=== PATIENT | male | born 1945 | race Caucasian/White ===

== ENCOUNTER 2019-02-07 15:48 | Emergency (ER) | payer MEDICARE, SELFPAY ==
[2019-02-07 15:50] VITALS: BP 130/80; PULSE 71; RESP 15; TEMP 36.8; O2SAT 99; BMI 23.6
--- NOTE | 2019-02-07 15:56 | DI.CT.S_ITS ---
PROCEDURE: CT HEAD/BRAIN WO CON INDICATIONS: hit in head with tailgate, on coumadin TECHNIQUE: Noncontrast 4.5 mm thick angled axial sections acquired from the foramen magnum to the vertex, with coronal and sagittal reformats. For radiation dose reduction, the following was used: automated exposure control, adjustment of mA and/or kV according to patient size. COMPARISON: None. FINDINGS: Image quality: Excellent. CSF spaces: Basal cisterns are patent. No extra-axial fluid collections. The ventricles are symmetric in size and shape. Brain: No intracranial bleeds or masses. There is cerebral volume loss for age, with resultant ventricular and sulcal prominence. There are periventricular and deep white matter chronic small vessel ischemic changes. There is intracranial internal carotid artery atherosclerosis. Skull and face: Calvarium and visualized facial bones appear intact, without suspicious lesions. Sinuses: Visualized sinuses and mastoids are clear. IMPRESSION: No acute intracranial process. Dictated by: Son Dubon M.D. on 02/07/2019 at 16:40 Approved by: Son Dubon M.D. on 02/07/2019 at 16:45
[2019-02-07] MEDS: LIDOCAINE/PRILOCAINE 5 GM TOP (16:36)
--- NOTE | 2019-02-07 16:48 | ED.HEATRA ---
HPI - Head Injury <DEREJE Clark-BC - Last Filed: 02/07/19 19:18> General Chief complaint: Head Injury Stated complaint: LACERATION TOP OF HEAD Time Seen by Provider: 02/07/19 15:50 Source: patient Mode of arrival: Ambulatory Limitations: no limitations History of Present Illness HPI Narrative: The patient is a 73-year-old male current smoker with history of prediabetes who presents with a chief complaint of hitting his head on the head of the car. He states he accidentally hit his head, causing a laceration. He is concerned that he is on Coumadin. He did not lose consciousness, denies any neck or back pain. Denies any numbness of groin. He denies any incontinence of bowel or bladder, lightheadedness, dizziness, chest pain or shortness of breath. The patient ambulates into the emergency department of his own accord. Given the patient hitting his head on Coumadin, a modified trauma was activated Related Data Home Medications Medication Instructions Recorded Confirmed metformin 500 mg PO BID 02/07/19 02/07/19 metoprolol tartrate 37.5 mg PO QPM 02/07/19 02/07/19 metoprolol tartrate 50 mg PO QAM 02/07/19 02/07/19 warfarin 5 mg PO DAILY 02/07/19 02/07/19 Allergies Allergy/AdvReac Type Severity Reaction Status Date / Time No Known Drug Allergies Allergy Verified 02/07/19 15:55 Review of Systems <DEREJE Clark-BC - Last Filed: 02/07/19 19:18> Review of Systems Narrative: GENERAL: Denies chills, fatigue, malaise, fever, sweats. HEENT: Denies sinus pain, ear pain, sore throat, difficulty swallowing, dizziness. RESPIRATORY: Denies dyspnea, cough, wheezing, hemoptysis, sputum. CARDIOVASCULAR: Denies chest pain, palpitations, orthopnea, edema, GASTROINTESTINAL: Denies nausea, vomiting, abdominal pain, diarrhea, constipation, melena. : Denies dysuria, frequency, incontinence, hematuria, urinary retention. MUSCULOSKELETAL: denies weakness, joint pain, or bony pain SKIN: See HPI NEUROLOGIC: Denies weakness, headache, numbness, change in speech, confusion, seizures, incoordination. PSYCHIATRIC: No concerning psychosocial issues. 12 point review of systems is negative except for those stated above Patient History <DEREJE Clark-BC - Last Filed: 02/07/19 19:18> Social History Smoking Status: Current every day smoker alcohol intake frequency: holidays/special occasions only Substance Use Type: does not use Exam <DEREJE Clark-BC - Last Filed: 02/07/19 19:18> Narrative Exam Narrative: GENERAL: This is a well-nourished, well-developed patient, in no acute distress. HEAD: Atraumatic. Normocephalic. No temporal or scalp tenderness. EYES: Pupils equal round and reactive. Extraocular motions intact. No scleral icterus. No injection or drainage. ENT: Nose without bleeding, purulent drainage or septal hematoma. Throat without erythema, tonsillar hypertrophy or exudate. Uvula midline. Airway patent. NECK: Trachea midline. No JVD or lymphadenopathy. Supple, nontender, no meningeal signs. CARDIOVASCULAR: Regular rate and rhythm RESPIRATORY: Coarse to auscultation. Breath sounds equal bilaterally. No wheezes, rales, or rhonchi. Occasional cough noted. No increased respiratory effort or accessory muscle use. GASTROINTESTINAL: Abdomen soft, non-tender, nondistended. No hepato-splenomegaly, or palpable masses. No guarding. EXTREMITIES: No clubbing, cyanosis, or edema. No joint tenderness, effusion, or edema noted. BACK: Nontender without deformity or crepitance. No flank tenderness. No pain to C, T or L-spine palpation. NEURO: AOx3. Speech is clear. Strength is equal upper and lower extremities bilaterally. Stable gait. SKIN: 2 cm laceration noted over scalp. Well approximated. No obvious muscle or tendon involvement. Initial Vital Signs Initial Vital Signs: Vital Signs Temperature 98.3 F 02/07/19 15:50 Pulse Rate 71 02/07/19 15:50 Respiratory Rate 15 02/07/19 15:50 Blood Pressure 130/80 02/07/19 15:50 Pulse Oximetry 99 02/07/19 15:50 <Mauricio Ball DO - Last Filed: 02/08/19 07:03> Initial Vital Signs Initial Vital Signs: Vital Signs Temperature 98.3 F 02/07/19 15:50 Pulse Rate 71 02/07/19 15:50 Respiratory Rate 15 02/07/19 15:50 Blood Pressure 130/80 02/07/19 15:50 Pulse Oximetry 99 02/07/19 15:50 Procedures <PAPI Clark - Last Filed: 02/07/19 19:18> Laceration Repair Laceration 1: Site: scalp Size (cm): 2 Description: linear Depth: simple, single layer Local Anesthetic: other anesthetic (Lidocaine cream) Pre-repair: wound explored, irrigated extensively (Cleansed with Hibiclens) and deep structures intact Skin layer closed with: héctor (3) Scores <PAPI Clark - Last Filed: 02/07/19 19:18> GCS Oliver coma scale eye opening: Spontaneous Oliver coma scale verbal response: Orientated Calvert coma scale motor response: Obey commands Oliver coma scale total score: 15 Nexus Score for C-Spine Focal Neurologic deficit present: No Midline spinal tenderness present: No Altered level of conciousness present: No Intoxication present: No Distracting Injury Present: No Nexus Criteria for C-spine: 0 Course <PAPI Clark - Last Filed: 02/07/19 19:18> Orders Ordered: Discontinued Medications Bacitracin (Bacitracin) 1 applic TOP NOW ONE Stop: 02/07/19 17:26 Last Admin: 02/07/19 17:34 Dose: 1 applic Documented by: AYE Lidocaine/Prilocaine (Lidocaine-Prilocaine Cream) 5 gm TOP NOW ONE Stop: 02/07/19 15:58 Last Admin: 02/07/19 16:36 Dose: 5 gm Documented by: AYE Vital Signs Vital signs: Vital Signs - 8 hr 02/07/19 15:50 02/07/19 17:13 02/07/19 17:23 Temperature 98.3 F Pulse Rate 71 88 90 Respiratory Rate 15 18 16 Blood Pressure 130/80 Blood Pressure [Right Arm] 160/89 H 160/89 H Pulse Oximetry 99 98 98 <Mauricio Ball DO - Last Filed: 02/08/19 07:03> Orders Ordered: Discontinued Medications Bacitracin (Bacitracin) 1 applic TOP NOW ONE Stop: 02/07/19 17:26 Last Admin: 02/07/19 17:34 Dose: 1 applic Documented by: AYE Lidocaine/Prilocaine (Lidocaine-Prilocaine Cream) 5 gm TOP NOW ONE Stop: 02/07/19 15:58 Last Admin: 02/07/19 16:36 Dose: 5 gm Documented by: AYE Vital Signs Vital signs: Vital Signs - 8 hr 02/07/19 15:50 02/07/19 17:13 02/07/19 17:23 Temperature 98.3 F Pulse Rate 71 88 90 Respiratory Rate 15 18 16 Blood Pressure 130/80 Blood Pressure [Right Arm] 160/89 H 160/89 H Pulse Oximetry 99 98 98 MDM - Head Injury <TIFFANIE Clark - Last Filed: 02/07/19 19:18> Imaging Data CT scan - head: Radiologist's impression: [address] [address] [address] Scan Report Signed Patient: Prakash Martinez JMR#: [id number] : [id number]:[id number] Age/Sex: 73 / MDate of Service: 02/07/19 Loc: ED Accession Number: [id number] Procedure: CT head/brain wo con Ordering Provider: Silvia Santoyo PROCEDURE: CT HEAD/BRAIN WO CON INDICATIONS: hit in head with tailgate, on coumadin TECHNIQUE: Noncontrast 4.5 mm thick angled axial sections acquired from the foramen magnum to the vertex, with coronal and sagittal reformats. For radiation dose reduction, the following was used: automated exposure control, adjustment of mA and/or kV according to patient size. COMPARISON: None. FINDINGS: Image quality: Excellent. CSF spaces: Basal cisterns are patent. No extra-axial fluid collections. The ventricles are symmetric in size and shape. Brain: No intracranial bleeds or masses. There is cerebral volume loss for age, with resultant ventricular and sulcal prominence. There are periventricular and deep white matter chronic small vessel ischemic changes. There is intracranial internal carotid artery atherosclerosis. Skull and face: Calvarium and visualized facial bones appear intact, without suspicious lesions. Sinuses: Visualized sinuses and mastoids are clear. IMPRESSION: No acute intracranial process. Dictated by: Son Dubon M.D. on 02/07/2019 at 16:40 Approved by: Son Dubon M.D. on 02/07/2019 at 16:45 [facility] Narrative Medical decision making narrative: The patient is a 73-year-old male who presents after hitting his head on the edge of a car. He is on Coumadin it and hit his head, so modified trauma was activated. I did not check his INR as his INR was checked this morning and down found to be in range at 3.0. Additionally his head CT showed no acute findings. He is GCS was 15, his C-spine was cleared by nexus criteria. The patient's laceration was closed by héctor. I discussed at length the importance of follow-up with primary care provider for staple removal. Discussed monitoring for signs and symptoms of infection such as redness pus etc. Discussed coming back to the emergency department for any acute concerns. Patient has no questions or concerns upon discharge. Discharge Plan Departure Patient Disposition: Home Clinical Impression: Laceration Discharge Date/Time: 02/07/19 17:44 Instructions: DI for Laceration Repair -- [place] Activity Restrictions/Additional Instructions: Please follow up with primary care provider for re-evaluation in a few days. Please monitor your laceration for signs and symptoms of infection such as redness pus and fever. Please come back to the emergency department for any acute concerns such as confusion or numbness in your groin Please follow up for staple removal in about 10 days. I suggest ice, Tylenol Motrin etc for pain Prescriptions: No Action metformin 500 mg tablet 500 mg PO BID RF: 0 warfarin 5 mg tablet 5 mg PO DAILY RF: 0 metoprolol tartrate 25 mg tablet 50 mg PO QAM RF: 0 metoprolol tartrate 25 mg tablet 37.5 mg PO QPM RF: 0
[2019-02-07 17:13] VITALS: BP 160/89; PULSE 88; RESP 18; O2SAT 98
[2019-02-07 17:23] VITALS: BP 160/89; PULSE 90; RESP 16; O2SAT 98
[2019-02-07] MEDS: BACITRACIN OINT 0.9 GM PCKT 1 APPLIC TOP (17:34)
--- NOTE | 2019-02-07 17:35 | PC.NURSE ---
Bacitracin, bandage, and stockinette cap applied.
== END 2019-02-07 17:44 | disposition home or self-care (01) ==
PROVIDERS: Emergency Provider Nurse Practitioner Family
DX: S01.01XA Laceration without foreign body of scalp, initial encounter (principal); Z79.01 Long term (current) use of anticoagulants; W22.8XXA Striking against or struck by other objects, initial encounter
CPT/HCPCS: 12001; 70450; 99283; 99284

== ENCOUNTER 2019-04-22 09:54 | Emergency (ER) | payer MEDICARE, SELFPAY ==
--- NOTE | 2019-04-22 09:58 | ED_ITS ---
HPI - Weakness General Chief complaint: Weakness Stated complaint: glf Time Seen by Provider: 04/22/19 09:57 Source: patient, family and EMS Mode of arrival: EMS Limitations: no limitations History of Present Illness HPI Narrative: The patient is a 73-year-old male with history of atrial fibrillation pre diabetes who presents with generalized weakness and falls. Family states that yesterday he was not feeling well felt overall weak and fatigued he has fallen a few times since then. He has had syncopal episodes in the past and currently has a loop recorder. He denies any injury from the falls no head injury, no LOC, no hip or pelvic pain. He has no weakness numbness tingling no chest pain heart palpitation. MD Complaint: generalized weakness Duration: constant Location: generalized Related Data Home Medications Medication Instructions Recorded Confirmed metformin 500 mg PO BID 02/07/19 02/07/19 metoprolol tartrate 37.5 mg PO QPM 02/07/19 02/07/19 metoprolol tartrate 50 mg PO QAM 02/07/19 02/07/19 warfarin 5 mg PO DAILY 02/07/19 02/07/19 Allergies Allergy/AdvReac Type Severity Reaction Status Date / Time No Known Drug Allergies Allergy Verified 02/07/19 15:55 Review of Systems Review of Systems ROS Unobtainable: All systems reviewed & are unremarkable except as noted in HPI and below Constitutional Constitutional: Denies body ache(s), Reports frequent falls and Denies headache(s) ENT Ears, Nose, Mouth, and Throat: Denies headache(s) Cardiovascular Cardiovascular: Denies chest pain, Reports irregular heart rhythm, Denies lightheadedness, Denies palpitations, Denies dyspnea, Denies dyspnea on exertion and Denies orthopnea Respiratory Respiratory: Denies cough, Denies dyspnea, Denies dyspnea on exertion and Denies wheezing Gastrointestinal Gastrointestinal: Denies abdominal pain, Denies change in bowel habits, Denies diarrhea, Denies nausea and Denies vomiting Genitourinary Genitourinary: Denies hematuria, Denies flank pain, Denies urinary incontinence and Denies urinary urgency Musculoskeletal Musculoskeletal: Denies back pain, Denies muscle weakness, Denies numbness and Denies tingling Integumentary/Breasts Skin/Breast: Denies pruritus, Denies erythema, Denies rash and Denies wounds Neurologic Neurologic: Denies confusion, Reports frequent falls, Denies headache(s), Denies numbness and Denies tingling Psychiatric Psychiatric: Denies anxiety, Denies confusion, Denies depression, Denies homicidal ideation and Denies suicidal ideation Endocrine Endocrine: Denies palpitations Allergic/Immunologic Allergic/Immunologic: Denies wheezing Patient History Medical History Atrial fibrillation (Acute) Social History Smoking Status: Current every day smoker Smoking Status: Current every day smoker alcohol intake frequency: holidays/special occasions only Substance Use Type: does not use Exam Initial Vital Signs Initial Vital Signs: Vital Signs Temperature 99.1 F 04/22/19 10:00 Pulse Rate 81 04/22/19 10:00 Respiratory Rate 16 04/22/19 10:00 Blood Pressure 119/67 04/22/19 10:00 Pulse Oximetry 98 04/22/19 10:00 GENERAL: Alert well-appearing elderly male and in no acute distress. HEENT: Head atraumatic,EOMI, pupils reactive, face symmetric, moist mucous membranes CARDIOLOGY: Irregularly irregular Regular rate and rhythm without murmurs, rubs or gallops. RESPIRATORY: Breath sounds equal bilaterally, no wheezes rales or rhonchi. ABDOMEN: Soft, nontender. Normoactive bowel sounds all 4 quadrants. No guardi ng or rebound. EXTREMITIES: Normal range of motion, no clubbing or edema. Neurovascularly intact NEUROLOGICAL: Alert and oriented x4.Normal gait and speech. SKIN: Warm, dry, no laceration, no petechiae, no rashes or lesions. Scores NIH Stroke Scale Level of Conciousness: Alert, keenly responsive Ask month/age: Answers both questions correctly. Open/close eyes, close hand: Performs both tasks correctly Best gaze horizontal: Normal Visual owens: No visual loss Facial palsy: Normal symetrical movement Left arm drift: No drift for full 10 sec Right arm drift: No drift for full 10 sec Left leg drift: No drift for full 10 sec Right leg drift: No drift for full 10 sec Limb ataxia: Absent Sensory on face/arms/legs: Normal, no sensory loss Best language: No aphasia, normal Dysarthria: Normal Extinction or inattention: No abnormality Total NIH Stroke scale score: 0 Course Orders Ordered: ED Orders 04/22/19 09:57 XR chest 1V Stat 04/22/19 10:04 CT head/brain wo con Stat 04/22/19 10:10 Complete Blood Count AUTO DIFF Stat Comprehensive Metabolic Panel Stat Influenza A & B (PCR) Stat Lactate (Lactic Acid) Stat Partial Thromboplastin Time Stat Procalcitonin Stat Prothrombin Time INR Stat Troponin & CK Cardiac Panel Stat 04/22/19 11:24 Blood Culture Stat 04/22/19 12:59 Urine Microscopic Stat Consultations Consultation #1: Dr. Amador neurosurgery has reviewed CT head, at this time if no significant trauma probably from venous access recommend repeat head CT by PCP next week. Time: 12:35 Vital Signs Vital signs: Vital Signs - 8 hr 04/22/19 10:00 04/22/19 11:00 04/22/19 11:30 Temperature 99.1 F Pulse Rate 81 68 79 Respiratory Rate 16 14 16 Blood Pressure 119/67 Blood Pressure [Left Arm] 121/70 127/73 Pulse Oximetry 98 99 99 04/22/19 12:00 04/22/19 12:30 Temperature Pulse Rate 78 76 Respiratory Rate 19 16 Blood Pressure Blood Pressure [Left Arm] 125/71 118/67 Pulse Oximetry 96 97 MDM - Weakness Lab Data Attestation: I reviewed the patient's lab results. Result diagrams: 04/22/19 10:10 04/22/19 10:10 Labs: Lab Results 04/22/19 04/22/19 04/22/19 Range/Units 10:10 10:10 10:10 WBC 8.0 (4.5-11.0) X10^3/uL RBC 4.50 (4.5-5.9) X10^6/uL Hgb 13.8 (13.5-17.5) g/dL Hct 40.8 L (41-53) % MCV 90.8 (80-100) fL MCH 30.6 (26-34) PG MCHC 33.7 (30-36) % RDW 15.9 H (11.6-14.8) % Plt Count 145 L (150-400) X10^3/uL Neut % (Auto) 57.6 (50-75) % Lymph % (Auto) 26.4 (25-40) % Bowman % (Auto) 12.2 (3-14) % Eos % (Auto) 3.0 (2-4) % Baso % (Auto) 0.8 (0-2) % Neut # (Auto) 4600 (3507-7626) /uL Lymph # (Auto) 2100 (3536-2173) /uL Bowman # (Auto) 1000 H (0-900) /uL Eos # (Auto) 200 (0-450) /uL Baso # (Auto) 100 (0-100) /uL PT 22.9 H (10.1-12.7) SECONDS INR 2.0 H (0.9-1.3) APTT 33 (26.4-36.2) SECONDS Sodium 140 (137-145) mmol/L Potassium 4.0 (3.4-5.1) mmol/L Chloride 106 (98-107) mmol/L Carbon Dioxide 29 (22-32) mmol/L BUN 27 H (9-20) mg/dL Creatinine 0.90 (0.66-1.25) mg/dL Estimated GFR > 60.0 (>60) mL/min BUN/Creatinine Ratio 30.0 H (6-22) Glucose 91 (80-110) mg/dL Lactate (0.7-2.1) mmol/L Calcium 9.1 (8.4-10.2) mg/dL Total Bilirubin 0.6 (0.2-1.3) mg/dL AST 48 (17-59) IU/L ALT 21 (<50) IU/L Alkaline Phosphatase 45 (38-126) U/L Total Creatine Kinase 63 (55-170) U/L CK-MB (CK-2) TNP CK-MB (CK-2) Rel Index TNP Troponin I 0.014 (0.01-0.034) ng/mL Total Protein 7.2 (6.3-8.2) g/dL Albumin 3.8 (3.5-5.0) g/dL Globulin 3.4 (1.7-4.1) g/dL Albumin/Globulin Ratio 1.1 (1.0-2.8) Procalcitonin (<0.5) ng/mL Urine RBC (0-5/HPF) Urine WBC (0-5/HPF) Urine Bacteria (None) Ur Culture Indicated? Influenza A (RT-PCR) (NEGATIVE) Influenza B (RT-PCR) (NEGATIVE) 01/04/20 01/04/20 01/04/20 Range/Units 10:10 10:10 10:10 WBC (4.5-11.0) X10^3/uL RBC (4.5-5.9) X10^6/uL Hgb (13.5-17.5) g/dL Hct (41-53) % MCV (80-100) fL MCH (26-34) PG MCHC (30-36) % RDW (11.6-14.8) % Plt Count (150-400) X10^3/uL Neut % (Auto) (50-75) % Lymph % (Auto) (25-40) % Bowman % (Auto) (3-14) % Eos % (Auto) (2-4) % Baso % (Auto) (0-2) % Neut # (Auto) (6814-6169) /uL Lymph # (Auto) (0409-7697) /uL Bowman # (Auto) (0-900) /uL Eos # (Auto) (0-450) /uL Baso # (Auto) (0-100) /uL PT (10.1-12.7) SECONDS INR (0.9-1.3) APTT (26.4-36.2) SECONDS Sodium (137-145) mmol/L Potassium (3.4-5.1) mmol/L Chloride (98-107) mmol/L Carbon Dioxide (22-32) mmol/L BUN (9-20) mg/dL Creatinine (0.66-1.25) mg/dL Estimated GFR (>60) mL/min BUN/Creatinine Ratio (6-22) Glucose (80-110) mg/dL Lactate 1.2 (0.7-2.1) mmol/L Calcium (8.4-10.2) mg/dL Total Bilirubin (0.2-1.3) mg/dL AST (17-59) IU/L ALT (<50) IU/L Alkaline Phosphatase (38-126) U/L Total Creatine Kinase (55-170) U/L CK-MB (CK-2) CK-MB (CK-2) Rel Index Troponin I (0.01-0.034) ng/mL Total Protein (6.3-8.2) g/dL Albumin (3.5-5.0) g/dL Globulin (1.7-4.1) g/dL Albumin/Globulin Ratio (1.0-2.8) Procalcitonin < 0.05 (<0.5) ng/mL Urine RBC (0-5/HPF) Urine WBC (0-5/HPF) Urine Bacteria (None) Ur Culture Indicated? Influenza A (RT-PCR) Flu a negative (NEGATIVE) Influenza B (RT-PCR) Flu b negative (NEGATIVE) 04/22/19 Range/Units 12:59 WBC (4.5-11.0) X10^3/uL RBC (4.5-5.9) X10^6/uL Hgb (13.5-17.5) g/dL Hct (41-53) % MCV (80-100) fL MCH (26-34) PG MCHC (30-36) % RDW (11.6-14.8) % Plt Count (150-400) X10^3/uL Neut % (Auto) (50-75) % Lymph % (Auto) (25-40) % Bowman % (Auto) (3-14) % Eos % (Auto) (2-4) % Baso % (Auto) (0-2) % Neut # (Auto) (7742-2307) /uL Lymph # (Auto) (4597-6741) /uL Bowman # (Auto) (0-900) /uL Eos # (Auto) (0-450) /uL Baso # (Auto) (0-100) /uL PT (10.1-12.7) SECONDS INR (0.9-1.3) APTT (26.4-36.2) SECONDS Sodium (137-145) mmol/L Potassium (3.4-5.1) mmol/L Chloride (98-107) mmol/L Carbon Dioxide (22-32) mmol/L BUN (9-20) mg/dL Creatinine (0.66-1.25) mg/dL Estimated GFR (>60) mL/min BUN/Creatinine Ratio (6-22) Glucose (80-110) mg/dL Lactate (0.7-2.1) mmol/L Calcium (8.4-10.2) mg/dL Total Bilirubin (0.2-1.3) mg/dL AST (17-59) IU/L ALT (<50) IU/L Alkaline Phosphatase (38-126) U/L Total Creatine Kinase (55-170) U/L CK-MB (CK-2) CK-MB (CK-2) Rel Index Troponin I (0.01-0.034) ng/mL Total Protein (6.3-8.2) g/dL Albumin (3.5-5.0) g/dL Globulin (1.7-4.1) g/dL Albumin/Globulin Ratio (1.0-2.8) Procalcitonin (<0.5) ng/mL Urine RBC 5-10/hpf H (0-5/HPF) Urine WBC None seen (0-5/HPF) Urine Bacteria None seen (None) Ur Culture Indicated? Cult not indicated Influenza A (RT-PCR) (NEGATIVE) Influenza B (RT-PCR) (NEGATIVE) Urine Dip Bedside Urine Glucose Negative Bedside Urine Bilirubin - Negative Bedside Urine Ketone +/- 5 Urine Specific [place] 1.015 Bedside Urine Occult Blood +/- Bedside Urine pH 6.5 Bedside Urine Protein +/- 15 Bedside Urine Urobilinogen - Negative Bedside Urine Nitrite - Negative Bedside Urine Leukocytes - Negative Esterase Imaging Data CT scan - head: Radiologist Impression: PROCEDURE: CT HEAD/BRAIN WO CON INDICATIONS: frequent falls on coumadin TECHNIQUE: Noncontrast 4.5 mm thick angled axial sections acquired from the foramen magnum to the vertex, with coronal and sagittal reformats. For radiation dose reduction, the following was used: automated exposure control, adjustment of mA and/or kV according to patient size. COMPARISON: [facility], CR, XR CHEST 1V, 04/22/2019, 10:12. [facility], CT, CT HEAD/BRAIN WO CON, 02/07/2019, 16:04. FINDINGS: Image quality: Excellent. CSF spaces: Basal cisterns are patent. No extra-axial fluid collections. The ventricles are symmetric in size and shape. Brain: No intracranial bleeds or masses. There is cerebral volume loss for age, with resultant ventricular and sulcal prominence. There are periventricular and deep white matter chronic small vessel ischemic changes. There is intracranial internal carotid artery atherosclerosis. Skull and face: Multiple foci of gas can be seen within the deep soft tissues of the face. There are a few soft tissue foci also seen within the region of the cavernous sinus as well as the margins of the orbits. Calvarium and visualized facial bones appear intact, without suspicious lesions. Sinuses: Visualized sinuses and mastoids are clear. IMPRESSION: No acute intracranial hemorrhage is seen. Multiple foci of abnormal soft tissue gas can be seen. Please correlate with facial injury. Additional foci of gas can be seen within the region of the cavernous sinus as well as the margins of the orbits, which may be related to venous gas. Please correlate with venous injury, including difficult IV start. If clinically appropriate, please consider a short term followup noncontrast CT in 1-3 days to assure resolution. Note: Findings and recommendations discussed by telephone with Dr. Cantrell at 10:33 AM [place] time on April 22, 2019. Dictated by: Julien Blank M.D. on 04/22/2019 at 9:30 Approved by: Julien Blank M.D. on 04/22/2019 at 9:38 Chest x-ray: Radiologist Impression: PROCEDURE: XR CHEST 1V INDICATIONS: fall weakness TECHNIQUE: One view of the chest was acquired. COMPARISON: [facility], CT, CT HEAD/BRAIN WO CON, 04/22/2019, 10:06. FINDINGS: Surgical changes and devices: A left-sided event monitor is seen. Lungs and pleura: No focal infiltrates are seen. Mild interstitial prominence is seen. No pleural effusions or pneumothorax. Mediastinum: Mediastinal contours appear normal. Heart size is at the upper li mits of normal. Bones and chest wall: No suspicious bony lesions. Overlying soft tissues appear unremarkable. IMPRESSION: Interstitial prominence is seen throughout. The interstitial promine nce is nonspecific, yet may be related to pulmonary edema. Dictated by: Julien Blank M.D. on 04/22/2019 at 9:38 Approved by: Julien Blank M.D. on 04/22/2019 at 9:3 ECG Data Attestation: I personally reviewed and interpreted this ECG as follows: Prior ECG tracings: not available for review Interpretation: Atrial fibrillation rate [address] changes MDM Narrative Medical decision making narrative: Patient is neurovascularly in a taxi has no sign of facial trauma. Head CT does review some air possibly in the vein versus the tissue. Spoken with [facility] neuro surgery who recommends repeat head CT as an outpatient. If he is completely asymptomatic which is he is at this time. It is unlikely that this caused him to pass out. It is more likely that the air is from venous puncture. He has a loop recorder implanted is from previous syncopal episodes. At this time I recommend they follow up with Cardiology he has remained in atrial fibrillation with PVCs in the emergency department he is ambulatory in the ED without any symptoms. I discussed all findings with the patient, daughter and , Education has been performed regarding treatment plan, diagnosis, warning signs and symptoms and all concerns have been addressed. Verbally agree with and understood all of the above. Discharge Plan Departure Patient Disposition: Home Clinical Impression: Fall Qualifiers: Encounter type: initial encounter Qualified Code(s): W19.XXXA - Unspecified fall, initial encounter Discharge Date/Time: 04/22/19 13:27 Instructions: Fainting Activity Restrictions/Additional Instructions: *You have been diagnosed with weakness, air bubbles seen and brain scan *What to do: At this time it is highly unlikely that the air bubbles are causing him to fall. This is likely from the IV start. It is highly recommended that repeat noncontrast head CT be done Wednesday or Wednesday with primary care physician. Recommend that you follow-up with Dr. Mendez in regards to heart monitor *Continue to take medications as directed *Follow up with your primary care provider in 2-3 days *Return to ER if you should have recurrent falls weakness confusion numbness tingling difficulty speaking or any new, worsening or concerning symptoms Prescriptions: No Action metformin 500 mg tablet 500 mg PO BID RF: 0 warfarin 5 mg tablet 5 mg PO DAILY RF: 0 metoprolol tartrate 25 mg tablet 50 mg PO QAM RF: 0 metoprolol tartrate 25 mg tablet 37.5 mg PO QPM RF: 0 Referrals: Grabiel Thompson MD [Non-Staff] -
[2019-04-22 10:00] VITALS: BP 119/67; PULSE 81; RESP 16; TEMP 37.3; O2SAT 98; BMI 24.6
--- NOTE | 2019-04-22 10:04 | DI.CT.S_ITS ---
PROCEDURE: CT HEAD/BRAIN WO CON INDICATIONS: frequent falls on coumadin TECHNIQUE: Noncontrast 4.5 mm thick angled axial sections acquired from the foramen magnum to the vertex, with coronal and sagittal reformats. For radiation dose reduction, the following was used: automated exposure control, adjustment of mA and/or kV according to patient size. COMPARISON: [facility], CR, XR CHEST 1V, 04/22/2019, 10:12. [facility], CT, CT HEAD/BRAIN WO CON, 02/07/2019, 16:04. FINDINGS: Image quality: Excellent. CSF spaces: Basal cisterns are patent. No extra-axial fluid collections. The ventricles are symmetric in size and shape. Brain: No intracranial bleeds or masses. There is cerebral volume loss for age, with resultant ventricular and sulcal prominence. There are periventricular and deep white matter chronic small vessel ischemic changes. There is intracranial internal carotid artery atherosclerosis. Skull and face: Multiple foci of gas can be seen within the deep soft tissues of the face. There are a few soft tissue foci also seen within the region of the cavernous sinus as well as the margins of the orbits. Calvarium and visualized facial bones appear intact, without suspicious lesions. Sinuses: Visualized sinuses and mastoids are clear. IMPRESSION: No acute intracranial hemorrhage is seen. Multiple foci of abnormal soft tissue gas can be seen. Please correlate with facial injury. Additional foci of gas can be seen within the region of the cavernous sinus as well as the margins of the orbits, which may be related to venous gas. Please correlate with venous injury, including difficult IV start. If clinically appropriate, please consider a short term followup noncontrast CT in 1-3 days to assure resolution. Note: Findings and recommendations discussed by telephone with Dr. Cantrell at 10:33 AM [place] time on April 22, 2019. Dictated by: Julien Blank M.D. on 04/22/2019 at 9:30 Approved by: Julien Blank M.D. on 04/22/2019 at 9:38
[2019-04-22 10:27] LABS: Add Manual Diff / Slide Review NO; Basophils Absolute Auto 100 /uL (0-100); Basophils Percent Auto 0.8 % (0-2); Eosinophils Absolute Auto 200 /uL (0-450); Hematocrit 40.8 % (41-53); Hemoglobin 13.8 g/dL (13.5-17.5); Lymphocytes Absolute Auto 2100 /uL (1100-4500); Lymphocytes Percent Auto 26.4 % (25-40); Mean Corpuscular HGB Conc 33.7 % (30-36); Mean Corpuscular Hemoglobin 30.6 PG (26-34); Mean Corpuscular Volume 90.8 fL (80-100); Monocytes Absolute Auto 1000 /uL (0-900); Monocytes Percent Auto 12.2 % (3-14); Neutrophils Absolute Auto 4600 /uL (1500-7000); Neutrophils Percent Auto 57.6 % (50-75); Platelet Count 145 X10^3/uL (150-400); Red Cell Distribution Width 15.9 % (11.6-14.8)
[2019-04-22 10:38] LABS: Prothrombin Time 22.9 SECONDS (10.1-12.7)
[2019-04-22 10:40] LABS: HEMOLYSIS 24 (0-50)
[2019-04-22 10:41] LABS: PTT Partial Thromboplastin Tim 33 SECONDS (26.4-36.2)
[2019-04-22 10:45] LABS: Lactate (Lactic Acid) 1.2 mmol/L (0.7-2.1)
[2019-04-22 10:46] LABS: Alanine Aminotransferase 21 IU/L (<50); Albumin 3.8 g/dL (3.5-5.0); Albumin Globulin Ratio 1.1 (1.0-2.8); Alkaline Phosphatase 45 U/L (38-126); Aspartate Aminotransferase 48 IU/L (17-59); Bilirubin Total 0.6 mg/dL (0.2-1.3); Blood Urea Nitrogen 27 mg/dL (9-20); Calcium 9.1 mg/dL (8.4-10.2); Carbon Dioxide 29 mmol/L (22-32); Chloride 106 mmol/L (98-107); Creatine Kinase 63 U/L (55-170); Estimated Glomerular Filt Rate > 60.0 mL/min (>60); Globulin 3.4 g/dL (1.7-4.1); Glucose 91 mg/dL (80-110); Sodium 140 mmol/L (137-145); Total Protein 7.2 g/dL (6.3-8.2)
[2019-04-22 10:59] LABS: Troponin I 0.014 ng/mL (0.01-0.034)
[2019-04-22 11:00] VITALS: BP 121/70; PULSE 68; RESP 14; O2SAT 99
[2019-04-22 11:03] LABS: Influenza A - CEPHEID Flu A NEGATIVE (NEGATIVE); Influenza B - CEPHEID Flu B NEGATIVE (NEGATIVE)
[2019-04-22 11:30] VITALS: BP 127/73; PULSE 79; RESP 16; O2SAT 99
[2019-04-22 12:00] VITALS: BP 125/71; PULSE 78; RESP 19; O2SAT 96
[2019-04-22 12:30] VITALS: BP 118/67; PULSE 76; RESP 16; O2SAT 97
--- NOTE | 2019-04-22 13:04 | PC.NURSE ---
standby to restroom, tolerated well.
[2019-04-22 13:07] LABS: Bacteria Urine None Seen; WBC Urine None Seen (0-5/HPF)
[2019-04-22 13:13] LABS: Procalcitonin < 0.05 ng/mL (<0.5)
[2019-04-22 13:15] LABS: Culture Indicated Urine Cult Not Indicated; RBC Urine 5-10/HPF (0-5/HPF)
== END 2019-04-22 13:27 | disposition home or self-care (01) ==
PROVIDERS: Emergency Provider Emergency Medicine
DX: R53.1 Weakness (principal); I48.91 Unspecified atrial fibrillation; Z91.81 History of falling; Z79.01 Long term (current) use of anticoagulants
CPT/HCPCS: 36415; 70450; 71045; 80053; 81003; 81015; 82550; 83605; 84145; 84484; 85025; 85610; 85730; 87040; 87502; 93005; 99284; 99285

== ENCOUNTER 2019-09-16 14:42 | Emergency (ER) | payer MEDICARE, SELFPAY ==
[2019-09-16 14:51] VITALS: BP 114/77; PULSE 106; RESP 13; TEMP 37.3; O2SAT 98
--- NOTE | 2019-09-16 14:59 | ED.SKABFB ---
HPI - Skin/Abscess/Foreign Bdy <TIFFANIE Clark - Last Filed: 09/16/19 19:27> General Chief complaint: Fever Stated complaint: swollen nodules in throat Time Seen by Provider: 09/16/19 14:51 Source: patient and family Mode of arrival: Ambulatory Limitations: no limitations History of Present Illness HPI narrative: The patient is a 73-year-old male current smoker with history of atrial fibrillation on Coumadin who presents for chief complaint of swollen lymph nodes in his neck. He states there on the front and the back, have been getting worse for the past several weeks to months. He comes to the emergency department today because one of his lymph nodes is becoming very painful and another one very large so he thought he would get it looked at. He complains of some postnasal drip, but denies any sore throat. He denies any fevers but complains of generalized fatigue over the past few weeks. He has tried to get his primary care provider but states he has been unable to do so. He states he is eating and drinking and swallowing food and drink well, no shortness of breath. Related Data Home Medications Medication Instructions Recorded Confirmed metformin 500 mg PO BID 02/07/19 02/07/19 metoprolol tartrate 37.5 mg PO QPM 02/07/19 02/07/19 metoprolol tartrate 50 mg PO QAM 02/07/19 02/07/19 warfarin 5 mg PO DAILY 02/07/19 02/07/19 Allergies Allergy/AdvReac Type Severity Reaction Status Date / Time No Known Drug Allergies Allergy Verified 02/07/19 15:55 Review of Systems <TIFFANIE Clark - Last Filed: 09/16/19 19:27> Review of Systems Narrative: GENERAL: Denies chills, fatigue, malaise, fever, sweats. HEENT: See HPI RESPIRATORY: Denies dyspnea, cough, wheezing, hemoptysis, sputum. CARDIOVASCULAR: Denies chest pain, palpitations, orthopnea, edema, GASTROINTESTINAL: Denies nausea, vomiting, abdominal pain, diarrhea, constipation, melena. : Denies dysuria, frequency, incontinence, hematuria, urinary retention. MUSCULOSKELETAL: denies weakness, joint pain, or bony pain SKIN: Denies rash, skin lesions, or other NEUROLOGIC: Denies weakness, headache, numbness, change in speech, confusion, seizures, incoordination. PSYCHIATRIC: No concerning psychosocial issues. 12 point review of systems is negative except for those stated above Patient History <TIFFANIE Clark - Last Filed: 09/16/19 19:27> Medical History Atrial fibrillation (Acute) Social History Smoking Status: Current every day smoker Smoking Status: Current every day smoker alcohol intake frequency: holidays/special occasions only Substance Use Type: does not use Exam <TIFFANIE Clark - Last Filed: 09/16/19 19:27> Narrative Exam Narrative: GENERAL: This is a well-nourished, well-developed patient, in no acute distress HEAD: Atraumatic. Normocephalic. No temporal or scalp tenderness. EYES: Pupils equal round and reactive. Extraocular motions intact. No scleral icterus. No injection or drainage. ENT: Nose without bleeding, purulent drainage or septal hematoma. Throat without erythema, tonsillar hypertrophy or exudate. Uvula midline. Airway patent. NECK: Bilateral anterior posterior lymphadenopathy noted including bilateral posterior auricular, cervical anterior and posterior, supraclavicular. CARDIOVASCULAR: Regular rate and irregular rhythm RESPIRATORY: Coarse bilaterally to auscultation. Breath sounds equal bilaterally. No wheezes, rales, or rhonchi. GASTROINTESTINAL: Abdomen soft, non-tender, nondistended. No hepato-splenomegaly, or palpable masses. No guarding. EXTREMITIES: No clubbing, cyanosis, or edema. No joint tenderness, effusion, or edema noted. Lymphadenopathy noted bilateral axilla and inguinal BACK: Nontender without deformity or crepitance. No flank tenderness. NEURO: AOx3. SKIN: No rash or erythema on visible skin Initial Vital Signs Initial Vital Signs: Vital Signs Temperature 99.2 F 09/16/19 14:51 Pulse Rate 106 H 09/16/19 14:51 Respiratory Rate 13 09/16/19 14:51 Blood Pressure 114/77 09/16/19 14:51 Pulse Oximetry 98 09/16/19 14:51 <Mauricio Ball DO - Last Filed: 09/17/19 07:12> Initial Vital Signs Initial Vital Signs: Vital Signs Temperature 99.2 F 09/16/19 14:51 Pulse Rate 106 H 09/16/19 14:51 Respiratory Rate 13 09/16/19 14:51 Blood Pressure 114/77 09/16/19 14:51 Pulse Oximetry 98 09/16/19 14:51 Scores <Silvia GonzalesPAPI sharifJUS - Last Filed: 09/16/19 19:27> GCS Dobbins coma scale eye opening: Spontaneous Dobbins coma scale verbal response: Orientated Oliver coma scale motor response: Obey commands Oliver coma scale total score: 15 Course <Silvia PAPI SantoyoJUS - Last Filed: 09/16/19 19:27> Orders Ordered: ED Orders 09/16/19 15:07 CT soft tissue neck w con Stat 09/16/19 15:40 Complete Blood Count AUTO DIFF Stat Comprehensive Metabolic Panel Stat Prothrombin Time INR Stat Vital Signs Vital signs: Vital Signs - 8 hr 09/16/19 14:51 09/16/19 18:38 Temperature 99.2 F Pulse Rate 106 H 87 Respiratory Rate 13 18 Blood Pressure 114/77 Blood Pressure [Left Arm] 107/66 Pulse Oximetry 98 97 <Mauricio Ball DO - Last Filed: 09/17/19 07:12> Orders Ordered: ED Orders 09/16/19 15:07 CT soft tissue neck w con Stat 09/16/19 15:40 Complete Blood Count AUTO DIFF Stat Comprehensive Metabolic Panel Stat Prothrombin Time INR Stat Vital Signs Vital signs: Vital Signs - 8 hr 09/16/19 14:51 09/16/19 18:38 Temperature 99.2 F Pulse Rate 106 H 87 Respiratory Rate 13 18 Blood Pressure 114/77 Blood Pressure [Left Arm] 107/66 Pulse Oximetry 98 97 MDM - Skin/Abscess/Foreign Bdy <Silvia GonzalesLONNIE sharifSURJIT - Last Filed: 09/16/19 19:27> Lab Data Result diagrams: 09/16/19 15:40 09/16/19 15:40 Labs: Lab Results 09/16/19 09/16/19 09/16/19 Range/Units 15:40 15:40 15:40 WBC 11.3 H (4.5-11.0) X10^3/uL RBC 4.47 L (4.5-5.9) X10^6/uL Hgb 13.6 (13.5-17.5) g/dL Hct 40.5 L (41-53) % MCV 90.7 (80-100) fL MCH 30.4 (26-34) PG MCHC 33.5 (30-36) % RDW 15.1 H (11.6-14.8) % Plt Count 190 (150-400) X10^3/uL Neut % (Auto) Not Reportable Lymph % (Auto) Not Reportable Bleckley % (Auto) Not Reportable Eos % (Auto) Not Reportable Baso % (Auto) Not Reportable Lymph # (Auto) Not Reportable [place]ck[place] # (Auto) Not Reportable Baso # (Auto) Not Reportable Total Counted 100 Seg Neutrophils % 62.0 (38-70) % Lymphocytes % (Manual) 22.0 L (25-45) % Atypical Lymphs % 2.0 H ( - 0) % Monocytes % (Manual) 12.0 H (2-11) % Eosinophils % (Manual) 2.0 (2-4) % Neutrophils # (Manual) 7006 H (8781-3546) /uL RBC Morphology See below Anisocytosis 1+ H PT 49.1 H (10.1-12.7) SECONDS INR 4.3 H (0.9-1.3) Sodium 138 (137-145) mmol/L Potassium 4.5 (3.4-5.1) mmol/L Chloride 101 (98-107) mmol/L Carbon Dioxide 27 (22-32) mmol/L BUN 24 H (9-20) mg/dL Creatinine 0.90 (0.66-1.25) mg/dL Estimated GFR > 60.0 (>60) mL/min BUN/Creatinine Ratio 26.7 H (6-22) Glucose 183 H (80-110) mg/dL Calcium 9.6 (8.4-10.2) mg/dL Total Bilirubin 0.7 (0.2-1.3) mg/dL AST 52 (17-59) IU/L ALT 47 (<50) IU/L Alkaline Phosphatase 57 (38-126) U/L Total Protein 7.9 (6.3-8.2) g/dL Albumin 3.7 (3.5-5.0) g/dL Globulin 4.2 H (1.7-4.1) g/dL Albumin/Globulin Ratio 0.9 L (1.0-2.8) Imaging Data soft tissue neck ct: Radiologist's Impression: [facility] [address] [place] [id number] Scan Report Signed Patient: Prakash Martinez JMR#: [id number] : 7Acct:[id number] Age/Sex: 73 / MDate of Service: 09/16/19 Loc: ED Accession Number: [id number] Procedure: CT soft tissue neck w con Ordering Provider: Silvia Santoyo [facility]- PROCEDURE: CT SOFT TISSUE NECK W CON INDICATIONS: fatigue, lymphadenopathy TECHNIQUE: After the administration of intravenous contrast, 3.0 mm axial sections acquired from the sella to the aortic arch. Additional oblique axial 3.0 mm sections acquired through the pharynx. 3 mm thick coronal and sagittal reformats were generated. For radiation dose reduction, the following was used: automated exposure control. COMPARISON: None. FINDINGS: Image quality: Excellent. Lymph nodes: Massively enlarged right anterior cervical adenopathy up and down the length of the neck. On image 67/2, a lymph node mass measures 6.3 x 5.0 cm. On image 52/2 there is a confluent lymph node mass in the right neck measuring 4.9 x 5.3 cm. There is significant extrinsic compression on the right internal left anterior chest there are innumerable enlarged left cervical lymph nodes as well. There is bilateral supraclavicular adenopathy. Both tonsillar pillars are quite enlarged. The oral airway is somewhat narrowed. The tracheal air column is deviated to the left. The tracheal air column is not compressed. Vessels: Visualized arterial vasculature appears patent. There is marked extrinsic compression on the right internal jugular vein. Neck spaces: Tonsillar pillars are quite enlarged. There is a polypoid mass extending to fill the right piriform sinus measuring approximately 1.8 x 1.4 cm. The left tonsillar pillar measures approximately 2.9 x 2.6 cm. The air column is narrowed at the oropharynx. The vocal cords, false vocal cords, py or, vallecula, and tongue base all appear normal. Extramucosal spaces appear unremarkable. Glands: The parotid and submandibular glands appear normal. Thyroid gland is unremarkable. The right lobe is compressed by a very large lymph node mass.. Miscellaneous: Visualized brain and orbits appear normal. Lung apices appear clear. Superficial soft tissues appear normal. Bones: No suspicious bony lesions. Visualized sinuses and mastoids appear unremarkable. IMPRESSION: 1. Massive right neck and extensive left neck adenopathy. Findings are highly suspicious for lymphoma. 2. Marked enlargement of the tonsillar pillars, polypoid mass, possibly submucosal in origin, possibly representing lymphoid tissue, filling the right pyriform sinus. 3. The oral airway is somewhat narrowed. The trachea is deviated to the left. The tracheal air column is not narrowed. Comment: Findings were discussed with Dr. Ball at the time of study dictation on 09/16/19 at 1530 hrs. PDT. Dictated by: Arvin Dozier M.D. on 09/16/2019 at 16:21 Approved by: Arvin Dozier M.D. on 09/16/2019 at 16:34 MDM Narrative Medical decision making narrative: The patient is a 73-year-old male who presents with his for chief complaint of worsening lymphadenopathy for the past 6 weeks or so. He does have gross lymphadenopathy on exam, so basic lab work and CT of his neck were completed. Imaging shows massive right neck and extensive left neck adenopathy, which is highly suspicious for lymphoma. He is also noted to have tracheal deviation to the left with no narrowing of the tracheal air column. I spoke with Dr. Becmkan from [facility], is happy to follow-up with the patient. Request that I help set up a lymph node biopsy. I spoke with Dr. Cano from [facility] who would like the patient to go to his office at 2:00 p.m. on Wednesday. Request that the patient hold Coumadin from this point now as he is supra therapeutic at 4.3 today. I discussed this at length with the patient and he and his state understanding. They state that the benefits of lymph node biopsy outweigh the risk of blood clot, stroke etcetera. The patient is oxygenating well, eating and drinking well at this point in time. They state understanding of coming back to the emergency department for any acute concerns. This includes inability to swallow food, difficulty breathing etcetera. Patient have no questions or concerns upon discharge and state understanding of return precautions as well as follow-up care for biopsy and hemeonc. <Mauricio Ball, DO - Last Filed: 09/17/19 07:12> Lab Data Labs: Lab Results 09/16/19 09/16/19 09/16/19 Range/Units 15:40 15:40 15:40 WBC 11.3 H (4.5-11.0) X10^3/uL RBC 4.47 L (4.5-5.9) X10^6/uL Hgb 13.6 (13.5-17.5) g/dL Hct 40.5 L (41-53) % MCV 90.7 (80-100) fL MCH 30.4 (26-34) PG MCHC 33.5 (30-36) % RDW 15.1 H (11.6-14.8) % Plt Count 190 (150-400) X10^3/uL Neut % (Auto) Not Reportable Lymph % (Auto) Not Reportable [place]ck[place] % (Auto) Not Reportable Eos % (Auto) Not Reportable Baso % (Auto) Not Reportable Lymph # (Auto) Not Reportable [place] # (Auto) Not Reportable Baso # (Auto) Not Reportable Total Counted 100 Seg Neutrophils % 62.0 (38-70) % Lymphocytes % (Manual) 22.0 L (25-45) % Atypical Lymphs % 2.0 H ( - 0) % Monocytes % (Manual) 12.0 H (2-11) % Eosinophils % (Manual) 2.0 (2-4) % Neutrophils # (Manual) 7006 H (1280-9308) /uL RBC Morphology See below Anisocytosis 1+ H PT 49.1 H (10.1-12.7) SECONDS INR 4.3 H (0.9-1.3) Sodium 138 (137-145) mmol/L Potassium 4.5 (3.4-5.1) mmol/L Chloride 101 (98-107) mmol/L Carbon Dioxide 27 (22-32) mmol/L BUN 24 H (9-20) mg/dL Creatinine 0.90 (0.66-1.25) mg/dL Estimated GFR > 60.0 (>60) mL/min BUN/Creatinine Ratio 26.7 H (6-22) Glucose 183 H (80-110) mg/dL Calcium 9.6 (8.4-10.2) mg/dL Total Bilirubin 0.7 (0.2-1.3) mg/dL AST 52 (17-59) IU/L ALT 47 (<50) IU/L Alkaline Phosphatase 57 (38-126) U/L Total Protein 7.9 (6.3-8.2) g/dL Albumin 3.7 (3.5-5.0) g/dL Globulin 4.2 H (1.7-4.1) g/dL Albumin/Globulin Ratio 0.9 L (1.0-2.8) Discharge Plan Departure Patient Disposition: Home Clinical Impression: Lymphadenopathy Discharge Date/Time: 09/16/19 19:34 Instructions: DI for Lymphadenopathy Activity Restrictions/Additional Instructions: Thank you for trusting us with your care today. I am glad you came in today so we can address your concerns. As I discussed, your CT findings are concerning for possible lymphoma I spoke with Dr. Cano from [facility]. He would like you to go to his office at 2:00 p.m. on Wednesday. You will likely be scheduled for a biopsy shortly thereafter. He would like you to hold your Coumadin from now on pending the biopsy I spoke with Dr. Beckman from [facility]. Their office will be contacting you for follow-up within the week. As discussed, please come back to emergency department for any acute concerns such as difficulty breathing or inability to swallow Please follow-up with primary care provider as well. Please follow-up with Dr. Cano at 2:00 p.m. on Wednesday. Please also follow-up with Oncology. Please hold your Coumadin for now pending the biopsy Prescriptions: No Action metformin 500 mg tablet 500 mg PO BID RF: 0 warfarin 5 mg tablet 5 mg PO DAILY RF: 0 metoprolol tartrate 25 mg tablet 50 mg PO QAM RF: 0 metoprolol tartrate 25 mg tablet 37.5 mg PO QPM RF: 0 Referrals: [facility] [Provider Group] Grabiel Thompson MD [Primary Care Provider] - Jacinto Beckman MD [Physician] - Jacoby Cano MD [Physician] - <Mauricio Ball DO - Last Filed: 09/17/19 07:12> Cosign ED Attending Cosignature Attestation: I was immediately available in the department for consultation. This documentation has been reviewed and I agree with assessment and plan. Supervised by Mauricio Ball, DO
--- NOTE | 2019-09-16 15:07 | DI.CT.S_ITS ---
PROCEDURE: CT SOFT TISSUE NECK W CON INDICATIONS: fatigue, lymphadenopathy TECHNIQUE: After the administration of intravenous contrast, 3.0 mm axial sections acquired from the sella to the aortic arch. Additional oblique axial 3.0 mm sections acquired through the pharynx. 3 mm thick coronal and sagittal reformats were generated. For radiation dose reduction, the following was used: automated exposure control. COMPARISON: None. FINDINGS: Image quality: Excellent. Lymph nodes: Massively enlarged right anterior cervical adenopathy up and down the length of the neck. On image 67/2, a lymph node mass measures 6.3 x 5.0 cm. On image 52/2 there is a confluent lymph node mass in the right neck measuring 4.9 x 5.3 cm. There is significant extrinsic compression on the right internal left anterior chest there are innumerable enlarged left cervical lymph nodes as well. There is bilateral supraclavicular adenopathy. Both tonsillar pillars are quite enlarged. The oral airway is somewhat narrowed. The tracheal air column is deviated to the left. The tracheal air column is not compressed. Vessels: Visualized arterial vasculature appears patent. There is marked extrinsic compression on the right internal jugular vein. Neck spaces: Tonsillar pillars are quite enlarged. There is a polypoid mass extending to fill the right piriform sinus measuring approximately 1.8 x 1.4 cm. The left tonsillar pillar measures approximately 2.9 x 2.6 cm. The air column is narrowed at the oropharynx. The vocal cords, false vocal cords, py or, vallecula, and tongue base all appear normal. Extramucosal spaces appear unremarkable. Glands: The parotid and submandibular glands appear normal. Thyroid gland is unremarkable. The right lobe is compressed by a very large lymph node mass.. Miscellaneous: Visualized brain and orbits appear normal. Lung apices appear clear. Superficial soft tissues appear normal. Bones: No suspicious bony lesions. Visualized sinuses and mastoids appear unremarkable. IMPRESSION: 1. Massive right neck and extensive left neck adenopathy. Findings are highly suspicious for lymphoma. 2. Marked enlargement of the tonsillar pillars, polypoid mass, possibly submucosal in origin, possibly representing lymphoid tissue, filling the right pyriform sinus. 3. The oral airway is somewhat narrowed. The trachea is deviated to the left. The tracheal air column is not narrowed. Comment: Findings were discussed with Dr. Ball at the time of study dictation on 09/16/19 at 1530 hrs. PDT. Dictated by: Arvin Dozier M.D. on 09/16/2019 at 16:21 Approved by: Arvin Dozier M.D. on 09/16/2019 at 16:34
[2019-09-16 15:59] LABS: INR 4.3 (0.9-1.3); Prothrombin Time 49.1 SECONDS (10.1-12.7)
[2019-09-16 16:02] LABS: Hematocrit 40.5 % (41-53); Hemoglobin 13.6 g/dL (13.5-17.5); Mean Corpuscular HGB Conc 33.5 % (30-36); Mean Corpuscular Hemoglobin 30.4 PG (26-34); Mean Corpuscular Volume 90.7 fL (80-100); Platelet Count 190 X10^3/uL (150-400); Red Blood Cell Count 4.47 X10^6/uL (4.5-5.9); Red Cell Distribution Width 15.1 % (11.6-14.8); White Blood Cell Count 11.3 X10^3/uL (4.5-11.0)
[2019-09-16 16:03] LABS: Add Manual Diff / Slide Review YES; Alanine Aminotransferase 47 IU/L (<50); Albumin 3.7 g/dL (3.5-5.0); Albumin Globulin Ratio 0.9 (1.0-2.8); Alkaline Phosphatase 57 U/L (38-126); Aspartate Aminotransferase 52 IU/L (17-59); BUN Creatinine Ratio 26.7 (6-22); Bilirubin Total 0.7 mg/dL (0.2-1.3); Blood Urea Nitrogen 24 mg/dL (9-20); Calcium 9.6 mg/dL (8.4-10.2); Carbon Dioxide 27 mmol/L (22-32); Chloride 101 mmol/L (98-107); Estimated Glomerular Filt Rate > 60.0 mL/min (>60); Globulin 4.2 g/dL (1.7-4.1); Glucose 183 mg/dL (80-110); HEMOLYSIS 17 (0-50); Potassium 4.5 mmol/L (3.4-5.1); Sodium 138 mmol/L (137-145); Total Protein 7.9 g/dL (6.3-8.2)
[2019-09-16 16:49] LABS: Anisocytosis 1+; Neutrophils Absolute Manual 7006 /uL (3000-5900); Total Cells Counted 100
[2019-09-16 18:38] VITALS: BP 107/66; PULSE 87; RESP 18; O2SAT 97
--- NOTE | 2019-09-18 10:14 | ONC.MSW ---
Description: Initial Referral Navigation T/C Reason for Referral: Probable Lymphoma Activity: Received notification from Dr. Beckman that he had consulted with the ED over the weekend, and is requesting an urgent initial consult with [facility]. ER findings indicate probable lymphoma. [employer] called pt's PCP, Dr. Thompson, and requested a referral and recent medical records. ER reports are in the EMR. Will f/u with pt once this referral comes through.
== END 2019-09-16 19:34 | disposition home or self-care (01) ==
PROVIDERS: Emergency Provider Nurse Practitioner Family; PCP Internal Medicine
DX: R59.1 Generalized enlarged lymph nodes (principal); I48.91 Unspecified atrial fibrillation; Z79.01 Long term (current) use of anticoagulants
CPT/HCPCS: 36415; 70491; 80053; 85025; 85610; 99284; Q9967

== ENCOUNTER → 2019-09-18 16:47 | Outpatient (CLI) | payer MEDICARE, SELFPAY ==
[2019-09-19 11:03] LABS: COVID19 Sendout Not Detected (Not Detect)
== END ==
PROVIDERS: PCP Internal Medicine; Visit Provider Specialist
DX: Z01.818 Encounter for other preprocedural examination (principal); R59.1 Generalized enlarged lymph nodes; I48.91 Unspecified atrial fibrillation; E11.9 Type 2 diabetes mellitus without complications; Z79.01 Long term (current) use of anticoagulants
CPT/HCPCS: 87635; 99214

== ENCOUNTER 2019-09-21 07:49 | Day surgery (SDC) | payer MEDICARE, SELFPAY ==
[2019-09-19 08:14] VITALS: BMI 23.1
[2019-09-21] VITALS (10 sets, daily range): BP systolic 86–137; BP diastolic 59–73; PULSE 79–123; RESP 9–16; TEMP 36.4–37.1; O2SAT 92–99; BMI 22.1
--- NOTE | 2019-09-21 | PATH_ITS ---
[facility] Accession Number: [id number] . 01 Material submitted: . PART A: lymph node - LEFT AXILLARY NODE x1 IN B+ FIXATIVE PART B: lymph node - LEFT AXILLARY NODE x1 IN FORMALIN . 01 Diagnosis: A / B) Lymph Node, left axillary, excisional biopsy: Mantle cell lymphoma, blastoid variant. (WHO Classification 2016: Mature B-cell neoplasm/Non-Hodgkin Lymphoma, Mantle cell lymphoma) --- CD20, BCL2, IgD and Cyclin D1 positive neoplasm on immunohistochemistry --- CD5 is predominately negative on immunohistochemistry See comments [facility] 09/27/2019 1523 Local . 01 Comment: Flow cytometric analysis on a tandem sample demonstrated two clonal populations. A large, abnormal clonal B-cell population (CD20+) without CD5 or CD10 expression and a minute clonal B-cell population (CD20+) with CD10 expression but without CD5 expression. Both populations were small to medium sized and demonstrated restricted surface kappa immunoglobulin light chain expression. See separate report ([id number]). . 01 Electronically signed: . Saadia Rodriguez MD, Pathologist NPI- [id number] . 01 Gross description: . (A) Received in B Plus Fix, labeled L axillary node, are two pieces of rush-white rubbery tissue (piece #1-1.2 x 0.9 x 0.5 cm; piece #2-3.2 x 0.7 x 0.6 cm). Serially sectioned and entirely submitted in cassettes A1 and A2-A3, respectively. (B) Received in formalin, labeled L axillary node, are multiple pieces of parry-pink and bright yellow rubbery tissue (4.0 x 2.0 x 1.2 cm in aggregate). Serially sectioned and entirely submitted in cassettes B1-B4. . Note: Also received is the following: One slide in 95% alcohol, one dry slide and, per the requisition, two slides in RPMI which were sent to flow cytometry for analysis. ([id number]) /[facility]V 09/22/2019 1121 Local . 01 Microscopic: . A) Lymph Node, left axillary, excisional biopsy (B+ fixed): H/E levels demonstrate soft tissue in which a diffuse infiltrate of lymphoid cells is present. Lymphoid cells are generally monotonous and predominately medium sized, with both small and large cells also noted. The N:C ratio is high. Nuclear membranes are markedly irregular and some have small visible nucleoli. Scattered isolated histiocytes impart a dubzjl-affghi-zxc appearance to the specimen. Mitotic activity is easily identified. Focal hyalinization of small vessels is noted. In some foci, the infiltrate is seen to course through adipocytes. . . B) Lymph Node, left axillary, excisional biopsy (Formalin fixed): H/E levels demonstrate soft tissue in which a diffuse infiltrate of lymphoid cells is present. Lymphoid cells are generally monotonous and predominately medium sized, with both small and large cells also noted. The N:C ratio is high. Nuclear membranes are markedly irregular and some have small visible nucleoli. Scattered isolated histiocytes impart a qvughh-wvsauk-wxg appearance to the specimen. Mitotic activity is easily identified. Focal hyalinization of small vessels is noted. In some foci, the infiltrate is seen to course through adipocytes. . In order to more fully characterize this process, immunohistochemical stains were indicated; these were performed on Block B3 (formalin fixed paraffin embedded tissue). The controls reacted appropriately. See below for Laboratory information. . Findings: CD20: Positive (Membranous/Strong) PAX5: Positive (Nuclear/Strong) IgD: Positive (Membranous/Moderate) BCL-2: Positive (Cytoplasmic/Strong) Cyclin D1: Positive (Nuclear/Strong) . CD3: Scattered small T-cells present throughout the specimen (Membranous/strong) CD5: Pattern mirrors CD3 with some background B-cells dim positive (T-cells: Membranous/strong, background B-cells Membranous/weak) CD23: Isolated [facility] clusters present (Membranous/Strong) CD10: Negative CD56: Negative CD138: Scattered plasma cells present, some in clusters. Lymphoid cells negative (strong/membranous) [place]: Scattered plasma cells present, some in clusters. Lymphoid cells negative (strong/membranous) Lambda: Scattered plasma cells present, some in clusters. Lymphoid cells negative (strong/membranous) BCL-6: Negative . Ki-67 (quant): >30% nuclear positivity (strong) Interpretation: Compatible with Mantle Cell Lymphoma; >30% mitotic activity . Technical Note: The immunohistochemistry stains reported were performed at [facility] ([address] [place], [place] [address]e [address], [facility] [address]). They were developed and their performance characteristics determined by [employer]. They have not been cleared or approved by the U.S. Food and Drug Administration, although such approval is not required for analyte-specific reagents of this type. . 01 Pathologist provided ICD-10: C83.14 . 01 CPT . 928014, 701608, K57497, A99032, 623127 Performed at: [facility] [address], [place], [place] [id number] MD Oseas Puga MD Phone: [phone]
[2019-09-21] MEDS: LACTATED RINGERS 1,000 ML 100 ML IV (08:30)
--- NOTE | 2019-09-21 09:01 | PM.PREOP ---
Pre-operative Note COVID-19 COVID-19 status: Negative Result date/Date tested (Pos, Neg/Pending): 09/18/19 Interval Note History & Physical reviewed/Exam performed by Physician: Yes Changes to H&P: No
[2019-09-21] MEDS: CEFAZOLIN 2 GM/100 ML FROZ.PIGGY IV (09:29)
--- NOTE | 2019-09-21 09:42 | SUR.OPER ---
Supine on padded OR bed, head on pillow, arms secured on padded arm boards at <90 degrees abduction, legs uncrossed, safety belt at thigh, tape over blanket over lower legs.
[2019-09-21] MEDS: BUPIVACAINE 0.5% (PF) VIAL 30 ML INJ (09:48)
--- NOTE | 2019-09-21 10:33 | PM.OP.1 ---
Operative Date/Time/Diagnoses Date of procedure: 09/21/19 Time of procedure: 10:33 Pre-op diagnosis: Diffuse lymphadenopathy suspect lymphoma Post-op diagnosis: same Procedure & Clinicians Procedure: Deep axillary node biopsy Same procedure as scheduled: Yes Indications: Diagnostic Surgeon: Jacoby Cano Click Yes if Unassisted: Yes Anesthesia Type: General Operative Notes Findings: Large friable node. Removed approximately half of it as it was falling apart. Closure Type: primary Specimen(s): other (Material for permanent/slide/flow cytometry) Prosthetic devices, grafts, tissues, transplants, or devices: None Estimated Blood Loss (mL): 10 Blood products transfused: none Procedure in detail: The patient was placed supine on the operating room table and underwent general LMA anesthesia. The anesthesiologist felt that it would be safe to do with that technique. Local anesthetic was infiltrated overlying the mass. Incision was made and carried down to the level of lymph node. I began to dissect around it and deliver it from its location. It did began to disintegrate into pieces. Rather than persistent trying to remove the old the entire node and causes bleeding and potentially not be able to remove the whole node as it was quite adherent to the surrounding structures I removed a significant portion of it and distributed it for specimens. Meticulous hemostasis was achieved. The axillary fascia was closed with interrupted 3 0 Vicryl. The subcu was closed with interrupted 3 0 Vicryl. The skin was closed running 4 0 Vicryl subcuticular stitch and Steri-Strips. Dressing was applied. Patient tolerated the procedure well. Complications: none Post-operative Condition: stable Disposition: PACU
--- NOTE | 2019-09-21 12:06 | SUR.PHASEII ---
Pt observed to be weak while attempting to dress in phase II. pt unable to remain in upright position independently. Pt reported has noticed increased weakness the past few weeks. This LN spoke with Dr. Cano regarding pt observed weakness. Dr. Cano at bedside to access and observe pt. Per Dr. Cano ok for pt to be discharged to home at this time. 1 person assist from [employer] provided with dressing. Pt ambulated to bathroom with sba from [employer]. pt discharged to home via wheelchair in stable condition at that time.
== END 2019-09-21 12:10 | disposition home or self-care (01) ==
PROVIDERS: PCP Internal Medicine; Referring Provider Specialist; Visit Provider Specialist
PROC: (CPT 38525; principal; 2019-09-21 09:00)
DX: C83.14 Mantle cell lymphoma, lymph nodes of axilla and upper limb (principal); E11.9 Type 2 diabetes mellitus without complications; I48.20 Chronic atrial fibrillation, unspecified; Z79.84 Long term (current) use of oral hypoglycemic drugs; Z79.01 Long term (current) use of anticoagulants
CPT/HCPCS: 38525; J0690; J2405; J2704; J3010

== ENCOUNTER 2019-10-06 12:26 | Emergency (ER) | payer MEDICARE, SELFPAY ==
[2019-10-06 12:59] VITALS: PULSE 93; RESP 16; O2SAT 95; BMI 20.3
--- NOTE | 2019-10-06 13:01 | DI.RAD.S_ITS ---
PROCEDURE: XR CHEST 1V INDICATIONS: altered mental status TECHNIQUE: One view of the chest was acquired. COMPARISON: [facility], CR, XR CHEST 1V, 04/22/2019, 10:12. FINDINGS: Surgical changes and devices: None. Lungs and pleura: Lungs are clear. No pleural effusions or pneumothorax. A nipple shadow is projected over the right lung base. Mediastinum: Mediastinal contours appear normal. Heart size is normal. Bones and chest wall: No suspicious bony lesions. Overlying soft tissues appear unremarkable. IMPRESSION: No acute cardiopulmonary findings. Dictated by: Sandra Pham M.D. on 10/06/2019 at 13:26 Approved by: Sandra Pham M.D. on 10/06/2019 at 13:26
[2019-10-06 13:11] LABS: Add Manual Diff / Slide Review NO; Basophils Absolute Auto 100 /uL (0-100); Basophils Percent Auto 1.1 % (0-2); Eosinophils Absolute Auto 100 /uL (0-450); Eosinophils Percent Auto 0.9 % (2-4); Hematocrit 43.4 % (41-53); Hemoglobin 14.9 g/dL (13.5-17.5); Lymphocytes Absolute Auto 3700 /uL (1100-4500); Lymphocytes Percent Auto 28.8 % (25-40); Mean Corpuscular HGB Conc 34.4 % (30-36); Mean Corpuscular Hemoglobin 30.2 PG (26-34); Monocytes Absolute Auto 1500 /uL (0-900); Monocytes Percent Auto 11.5 % (3-14); Neutrophils Absolute Auto 7400 /uL (1500-7000); Neutrophils Percent Auto 57.7 % (50-75); Platelet Count 264 X10^3/uL (150-400); Red Blood Cell Count 4.94 X10^6/uL (4.5-5.9); Red Cell Distribution Width 14.8 % (11.6-14.8); White Blood Cell Count 12.8 X10^3/uL (4.5-11.0)
[2019-10-06 13:14] VITALS: BP 159/93; PULSE 101; RESP 14; O2SAT 96
[2019-10-06 13:22] LABS: Alanine Aminotransferase 19 IU/L (<50); Albumin 3.8 g/dL (3.5-5.0); Albumin Globulin Ratio 0.8 (1.0-2.8); Alkaline Phosphatase 49 U/L (38-126); Aspartate Aminotransferase 31 IU/L (17-59); BUN Creatinine Ratio 20.2 (6-22); Bilirubin Total 0.8 mg/dL (0.2-1.3); Blood Urea Nitrogen 17 mg/dL (9-20); Calcium 11.7 mg/dL (8.4-10.2); Carbon Dioxide 31 mmol/L (22-32); Chloride 97 mmol/L (98-107); Estimated Glomerular Filt Rate > 60.0 mL/min (>60); Globulin 4.8 g/dL (1.7-4.1); Glucose 126 mg/dL (80-110); HEMOLYSIS < 15 (0-50); Potassium 4.3 mmol/L (3.4-5.1); Sodium 135 mmol/L (137-145); Total Protein 8.6 g/dL (6.3-8.2)
[2019-10-06 13:32] LABS: Ammonia (NH3) < 9 umol/L (9-30)
--- NOTE | 2019-10-06 13:35 | DI.RAD.S_ITS ---
PROCEDURE: XR LUMBAR SPINE 2-3V INDICATIONS: back pain TECHNIQUE: 3 views of the lumbar spine were acquired. COMPARISON: [facility], CR, XR ABDOMEN MIN 2V, 10/06/2019, 12:41. FINDINGS: Bones: 5 [id number] vertebrae are present. There is normal bony alignment except for slight mid lumbosacral dextroscoliosis. No vertebral body compression fractures but there is a moderate degree of degenerative disc disease best seen over the middle and lower thirds of the LS spine with accompanying facet osteoarthritis that becomes progressively more prominent from L3 inferiorly and is most pronounced at the lumbosacral junction. No suspicious bony lesions. Soft tissues: Overlying bowel gas pattern is normal. No suspicious soft tissue calcifications. IMPRESSION: Degenerative changes to the degree that significant spinal and foraminal stenosis likely is present over the lower third of the LS spine. No trauma or subluxation is associated. Slight dextroscoliosis. Dictated by: Mychal Mclaughlin M.D. on 10/06/2019 at 13:26 Approved by: Mychal Mclaughlin M.D. on 10/06/2019 at 13:27
--- NOTE | 2019-10-06 13:35 | DI.RAD.S_ITS ---
PROCEDURE: XR ABDOMEN MIN 2V INDICATIONS: abd pain, constipation TECHNIQUE: 2 views of the abdomen were acquired. COMPARISON: None. FINDINGS: Surgical changes and devices: None. Bowel: No pneumoperitoneum. There is moderate stool distention in the rectosigmoid colon and a small to moderate amount of fecal loading throughout the colon. The bowel gas pattern otherwise appears within normal limits. Soft tissues: No suspicious abdominal calcifications. Bones: No suspicious bony abnormalities. IMPRESSION: 1. Moderate stool distention in the rectosigmoid colon compatible with history of constipation. No definite bowel obstruction. Dictated by: Oseas Teixeira M.D. on 10/06/2019 at 14:43 Approved by: Oseas Teixeira M.D. on 10/06/2019 at 14:45
[2019-10-06 14:08] LABS: Amylase 123 U/L (30-110); Lipase 98 U/L (23-300)
[2019-10-06] MEDS: SODIUM CHLORIDE 0.9% 1,000 ML 1000 ML IV ×2 (14:08→15:35)
[2019-10-06 14:12] VITALS: BP 166/67; PULSE 100; RESP 18; O2SAT 96
--- NOTE | 2019-10-06 14:12 | ED.WEAKNESS ---
HPI - Weakness <LONNIE ClarkP-BC - Last Filed: 10/06/19 20:48> General Chief complaint: Weakness Stated complaint: Dehydrated. 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 The patient and his state he has a recent lymphoma diagnosis, they have elected to not do any chemotherapy or radiation. They rather would like to follow a holistic nutritional route. They state that they are waiting to get into a clinic in [facility]. Patient states that he is not eating or drinking much because he has no taste. states that he is drinking lots of juice. He states he has abdominal pain, has not had a bowel movement in 4 days and his PCPs office is concerned about an obstruction. He has not taken any laxatives or anything help him of a bowel movement. He states he is still passing gas. He complains of nausea, no vomiting. He also has back pain. This is lumbar pain, he states he has had it since before his diagnosis, though it has gotten much worse recently as he has been inactive. He denies any incontinence or fevers. He denies any cough or congestion. He states he is always in atrial fibrillation, so do not get too worried about that. He denies any dysuria urgency or frequency. He states that he is taking his prescribed OxyContin for his back pain, though does not want anything else extra at this point time. Related Data Home Medications Medication Instructions Recorded Confirmed metformin 500 mg PO BEDTIME 02/07/19 09/28/19 warfarin 5 mg PO SEEINSTR 02/07/19 09/28/19 metoprolol succinate 25 mg PO DAILY 09/21/19 09/28/19 Previous Rx's Medication Instructions Recorded oxycodone-acetaminophen 1 tab PO Q4H PRN #10 tab 09/21/19 hydrocodone-acetaminophen 1 tab PO Q4-6H PRN #10 tab 10/06/19 lidocaine 1 patch TOP DAILY PRN #15 each 10/06/19 Allergies Allergy/AdvReac Type Severity Reaction Status Date / Time No Known Drug Allergies Allergy Verified 06/19/20 12:59 Review of Systems <TIFAFNIE Clark - Last Filed: 10/06/19 20:48> Review of Systems Narrative: GENERAL: Denies chills, fatigue, malaise, fever, sweats. HEENT: Denies sinus pain, ear pain, sore throat, difficulty swallowing, dizziness. RESPIRATORY: Denies dyspnea, cough, wheezing, hemoptysis, sputum. CARDIOVASCULAR: Denies chest pain, palpitations, orthopnea, edema, GASTROINTESTINAL: See HPI : Denies dysuria, frequency, incontinence, hematuria, urinary retention. MUSCULOSKELETAL: See HPI SKIN: Denies rash, skin lesions, or other NEUROLOGIC: Denies weakness, headache, numbness, change in speech, confusion, seizures, incoordination. PSYCHIATRIC: No concerning psychosocial issues. 12 point review of systems is negative except for those stated above Patient History <TIFFANIE Clark - Last Filed: 10/06/19 20:48> Medical History Atrial fibrillation (Acute) Chronic anticoagulation (Acute) Type 2 diabetes mellitus (Acute) Family History Other Cancer Social History household members: spouse Smoking Status: Current every day smoker alcohol intake: current Smoking Status: Current every day smoker alcohol intake frequency: holidays/special occasions only Substance Use Type: does not use Exam <TIFFANIE Clark - Last Filed: 10/06/19 20:48> Narrative Exam Narrative: GENERAL: Thin elderly male lying on stretcher HEAD: Atraumatic. Normocephalic. No temporal or scalp tenderness. EYES: Pupils equal round and reactive. Extraocular motions intact. No scleral icterus. No injection or drainage. ENT: Nose without bleeding, purulent drainage or septal hematoma. Throat without erythema, tonsillar hypertrophy or exudate. Uvula midline. Airway patent. NECK: Trachea midline. Bilateral lymphadenopathy noted. Supple, nontender, no meningeal signs. CARDIOVASCULAR: Regular rate and rhythm without murmurs, gallops, or rubs. RESPIRATORY: Clear to auscultation. Breath sounds equal bilaterally. No wheezes, rales, or rhonchi. No cough. No increased respiratory effort. No accessory muscle use. GASTROINTESTINAL: Abdomen soft, non-tender, nondistended. No hepato-splenomegaly, or palpable masses. No guarding. Active bowel sounds all 4 quadrants. EXTREMITIES: No clubbing, cyanosis, or edema. No joint tenderness, effusion, or edema noted. BACK: Pain to palpation lumbar spine. No pain to C or T-spine palpation NEURO: AOx3. Stable gait. Sensation intact bilateral lower extremities. SKIN: No rash or erythema on visible skin Initial Vital Signs Initial Vital Signs: Vital Signs Pulse Rate 93 H 10/06/19 12:59 Respiratory Rate 16 10/06/19 12:59 Pulse Oximetry 95 10/06/19 12:59 <Reece Mcknight MD - Last Filed: 10/06/19 21:45> Initial Vital Signs Initial Vital Signs: Vital Signs Pulse Rate 93 H 10/06/19 12:59 Respiratory Rate 16 10/06/19 12:59 Pulse Oximetry 95 10/06/19 12:59 Scores <TIFFANIE Clark - Last Filed: 10/06/19 20:48> GCS [place] coma scale eye opening: Spontaneous [place] coma scale verbal response: Orientated [place] coma scale motor response: Obey commands [place] coma scale total score: 15 Course <TIFFANIE Clark - Last Filed: 10/06/19 20:48> Orders Ordered: ED Orders 10/06/19 12:58 Complete Blood Count AUTO DIFF Stat Comprehensive Metabolic Panel Stat 10/06/19 13:01 XR chest 1V Stat EKG-12 Lead Stat 10/06/19 13:15 Ammonia (NH3) Stat Amylase Stat Lipase Stat 10/06/19 13:35 XR abdomen min 2V Stat XR lumbar spine 2-3V Stat 10/06/19 15:31 Urine Drug Screen, Rapid Stat Discontinued Medications Hydrocodone Bitart/Acetaminophen ([place] 5/325) 1 tab PO NOW ONE Stop: 10/06/19 16:04 Last Admin: 10/06/19 16:22 Dose: 1 tab Documented by: AYE Sodium Chloride (Normal Saline 0.9%) 1,000 mls @ 1,000 mls/hr IV BOLUS ONE Stop: 10/06/19 14:34 Last Infusion: 10/06/19 15:19 Dose: 0 mls/hr Documented by: MARÍA ELENA Admin: 10/06/19 14:08 Dose: 1,000 mls/hr Documented by: AYE Sodium Chloride (Normal Saline 0.9%) 1,000 mls @ 1,000 mls/hr IV BOLUS ONE Stop: 10/06/19 16:30 Last Infusion: 10/06/19 17:28 Dose: 0 mls/hr Documented by: Admin: 10/06/19 15:35 Dose: 1,000 mls/hr Documented by: MARÍA ELENA Lidocaine (Lidoderm) 1 each TOP NOW ONE Stop: 10/06/19 16:04 Last Admin: 10/06/19 16:22 Dose: 1 each Documented by: AYE Vital Signs Vital signs: Vital Signs - 8 hr 10/06/19 14:12 10/06/19 15:38 10/06/19 16:42 Pulse Rate 100 H 95 H 88 Respiratory Rate 18 16 16 Blood Pressure [Right Arm] 166/67 H 136/77 147/77 H Pulse Oximetry 96 98 98 <Reece Mcknight MD - Last Filed: 10/06/19 21:45> Orders Ordered: ED Orders 10/06/19 12:58 Complete Blood Count AUTO DIFF Stat Comprehensive Metabolic Panel Stat 10/06/19 13:01 XR chest 1V Stat EKG-12 Lead Stat 10/06/19 13:15 Ammonia (NH3) Stat Amylase Stat Lipase Stat 10/06/19 13:35 XR abdomen min 2V Stat XR lumbar spine 2-3V Stat 10/06/19 15:31 Urine Drug Screen, Rapid Stat Discontinued Medications Hydrocodone Bitart/Acetaminophen ([place] 5/325) 1 tab PO NOW ONE Stop: 10/06/19 16:04 Last Admin: 10/06/19 16:22 Dose: 1 tab Documented by: AYE Sodium Chloride (Normal Saline 0.9%) 1,000 mls @ 1,000 mls/hr IV BOLUS ONE Stop: 10/06/19 14:34 Last Infusion: 10/06/19 15:19 Dose: 0 mls/hr Documented by: MARÍA ELENA Admin: 10/06/19 14:08 Dose: 1,000 mls/hr Documented by: AYE Sodium Chloride (Normal Saline 0.9%) 1,000 mls @ 1,000 mls/hr IV BOLUS ONE Stop: 10/06/19 16:30 Last Infusion: 10/06/19 17:28 Dose: 0 mls/hr Documented by: Admin: 10/06/19 15:35 Dose: 1,000 mls/hr Documented by: MARÍA ELENA Lidocaine (Lidoderm) 1 each TOP NOW ONE Stop: 10/06/19 16:04 Last Admin: 10/06/19 16:22 Dose: 1 each Documented by: AYE Vital Signs Vital signs: Vital Signs - 8 hr 10/06/19 14:12 10/06/19 15:38 10/06/19 16:42 Pulse Rate 100 H 95 H 88 Respiratory Rate 18 16 16 Blood Pressure [Right Arm] 166/67 H 136/77 147/77 H Pulse Oximetry 96 98 98 MDM - Weakness <PAPI ClarkBC - Last Filed: 10/06/19 20:48> Lab Data Attestation: I reviewed the patient's lab results. Result diagrams: 10/06/19 12:58 10/06/19 12:58 Labs: Lab Results 10/06/19 10/06/19 10/06/19 Range/Units 12:58 12:58 13:15 WBC 12.8 H (4.5-11.0) X10^3/uL RBC 4.94 (4.5-5.9) X10^6/uL Hgb 14.9 (13.5-17.5) g/dL Hct 43.4 (41-53) % MCV 88.0 (80-100) fL MCH 30.2 (26-34) PG MCHC 34.4 (30-36) % RDW 14.8 (11.6-14.8) % Plt Count 264 (150-400) X10^3/uL Neut % (Auto) 57.7 (50-75) % Lymph % (Auto) 28.8 (25-40) % [place] % (Auto) 11.5 (3-14) % Eos % (Auto) 0.9 L (2-4) % Baso % (Auto) 1.1 (0-2) % Neut # (Auto) 7400 H (0738-0977) /uL Lymph # (Auto) 3700 (9649-8834) /uL [place] # (Auto) 1500 H (0-900) /uL Eos # (Auto) 100 (0-450) /uL Baso # (Auto) 100 (0-100) /uL Sodium 135 L (137-145) mmol/L Potassium 4.3 (3.4-5.1) mmol/L Chloride 97 L (98-107) mmol/L Carbon Dioxide 31 (22-32) mmol/L BUN 17 (9-20) mg/dL Creatinine 0.84 (0.66-1.25) mg/dL Estimated GFR > 60.0 (>60) mL/min BUN/Creatinine Ratio 20.2 (6-22) Glucose 126 H (80-110) mg/dL Calcium 11.7 H (8.4-10.2) mg/dL Total Bilirubin 0.8 (0.2-1.3) mg/dL AST 31 (17-59) IU/L ALT 19 (<50) IU/L Alkaline Phosphatase 49 (38-126) U/L Ammonia < 9 L (9-30) umol/L Total Protein 8.6 H (6.3-8.2) g/dL Albumin 3.8 (3.5-5.0) g/dL Globulin 4.8 H (1.7-4.1) g/dL Albumin/Globulin Ratio 0.8 L (1.0-2.8) Amylase (30-110) U/L Lipase (23-300) U/L U Opiates 300ng/mL cut (Negative) Ur Oxycodone Screen (Negative) Urine Methadone Screen (Negative) Ur Barbiturates Screen (Negative) U Tricyclic Antidepress (Negative) Ur Phencyclidine Scrn (Negative) Ur Amphetamines Screen (Negative) U Methamphetamines Scrn (Negative) Ur MDMA Scrn (Ecstasy) (Negative) U Benzodiazepines Scrn (Negative) Urine Cocaine Screen (Negative) U Marijuana (THC) Screen (Negative) 10/06/19 10/06/19 Range/Units 13:15 15:31 WBC (4.5-11.0) X10^3/uL RBC (4.5-5.9) X10^6/uL Hgb (13.5-17.5) g/dL Hct (41-53) % MCV (80-100) fL MCH (26-34) PG MCHC (30-36) % RDW (11.6-14.8) % Plt Count (150-400) X10^3/uL Neut % (Auto) (50-75) % Lymph % (Auto) (25-40) % [place] % (Auto) (3-14) % Eos % (Auto) (2-4) % Baso % (Auto) (0-2) % Neut # (Auto) (9501-7276) /uL Lymph # (Auto) (2099-5166) /uL [place] # (Auto) (0-900) /uL Eos # (Auto) (0-450) /uL Baso # (Auto) (0-100) /uL Sodium (137-145) mmol/L Potassium (3.4-5.1) mmol/L Chloride (98-107) mmol/L Carbon Dioxide (22-32) mmol/L BUN (9-20) mg/dL Creatinine (0.66-1.25) mg/dL Estimated GFR (>60) mL/min BUN/Creatinine Ratio (6-22) Glucose (80-110) mg/dL Calcium (8.4-10.2) mg/dL Total Bilirubin (0.2-1.3) mg/dL AST (17-59) IU/L ALT (<50) IU/L Alkaline Phosphatase (38-126) U/L Ammonia (9-30) umol/L Total Protein (6.3-8.2) g/dL Albumin (3.5-5.0) g/dL Globulin (1.7-4.1) g/dL Albumin/Globulin Ratio (1.0-2.8) Amylase 123 H (30-110) U/L Lipase 98 (23-300) U/L U Opiates 300ng/mL cut Negative (Negative) Ur Oxycodone Screen Positive H (Negative) Urine Methadone Screen Negative (Negative) Ur Barbiturates Screen Negative (Negative) U Tricyclic Antidepress Negative (Negative) Ur Phencyclidine Scrn Negative (Negative) Ur Amphetamines Screen Negative (Negative) U Methamphetamines Scrn Negative (Negative) Ur MDMA Scrn (Ecstasy) Negative (Negative) U Benzodiazepines Scrn Negative (Negative) Urine Cocaine Screen Negative (Negative) U Marijuana (THC) Screen Positive H (Negative) Urine Dip Bedside Urine Glucose Negative Bedside Urine Bilirubin - Negative Bedside Urine Ketone - Negative Urine Specific [place] 1.015 Bedside Urine Occult Blood - Negative Bedside Urine pH 6.5 Bedside Urine Protein - Negative Bedside Urine Urobilinogen - Negative Bedside Urine Nitrite - Negative Bedside Urine Leukocytes - Negative Esterase Imaging Data Chest x-ray: Radiologist Impression: [address] [place] [id number] XRay Report Signed Patient: Prakash Martinez JMR#: [id number] : 7Acct:[id number] Age/Sex: 74 / MDate of Service: 10/06/19 Loc: ED Accession Number: [id number] Procedure: XR chest 1V Ordering Provider: Reece Mcknight MD PROCEDURE: XR CHEST 1V INDICATIONS: altered mental status TECHNIQUE: One view of the chest was acquired. COMPARISON: [facility], XR CHEST 1V, 04/22/2019, 10:12. FINDINGS: Surgical changes and devices: None. Lungs and pleura: Lungs are clear. No pleural effusions or pneumothorax. A nipple shadow is projected over the right lung base. Mediastinum: Mediastinal contours appear normal. Heart size is normal. Bones and chest wall: No suspicious bony lesions. Overlying soft tissues appear unremarkable. IMPRESSION: No acute cardiopulmonary findings. Dictated by: Sandra Pham M.D. on 10/06/2019 at 13:26 Approved by: Sandra Pham M.D. on 10/06/2019 at 13:26 Abdominal x-ray: Radiologist Impression: [address] [place] [id number] XRay Report Signed Patient: Prakash Martinez JMR#: [id number] : 7At:[id number] Age/Sex: 74 / MDate of Service: 10/06/19 Loc: ED Accession Number: [id number] Procedure: XR abdomen min 2V Ordering Provider: Silvia Santoyo-BC PROCEDURE: XR ABDOMEN MIN 2V INDICATIONS: abd pain, constipation TECHNIQUE: 2 views of the abdomen were acquired. COMPARISON: None. FINDINGS: Surgical changes and devices: None. Bowel: No pneumoperitoneum. There is moderate stool distention in the rectosigmoid colon and a small to moderate amount of fecal loading throughout the colon. The bowel gas pattern otherwise appears within normal limits. Soft tissues: No suspicious abdominal calcifications. Bones: No suspicious bony abnormalities. IMPRESSION: 1. Moderate stool distention in the rectosigmoid colon compatible with history of constipation. No definite bowel obstruction. Dictated by: Oseas Teixeira M.D. on 10/06/2019 at 14:43 Approved by: Oseas Teixeira M.D. on 10/06/2019 at 14:45 Lumbar spine: Radiologist Impression: [address] [place] [id number] XRay Report Signed Patient: Prakash Martinez JMR#: [id number] : 7Acct:[id number] Age/Sex: 74 / MDate of Service: 10/06/19 Loc: ED Accession Number: [id number] Procedure: XR lumbar spine 2-3V Ordering Provider: Silvia SantoyoP- PROCEDURE: XR LUMBAR SPINE 2-3V INDICATIONS: back pain TECHNIQUE: 3 views of the lumbar spine were acquired. COMPARISON: [facility], CR, XR ABDOMEN MIN 2V, 10/06/2019, 12:41. FINDINGS: Bones: 5 [id number] vertebrae are present. There is normal bony alignment except for slight mid lumbosacral dextroscoliosis. No vertebral body compression fractures but there is a moderate degree of degenerative disc disease best seen over the middle and lower thirds of the LS spine with accompanying facet osteoarthritis that becomes progressively more prominent from L3 inferiorly and is most pronounced at the lumbosacral junction. No suspicious bony lesions. Soft tissues: Overlying bowel gas pattern is normal. No suspicious soft tissue calcifications. IMPRESSION: Degenerative changes to the degree that significant spinal and foraminal stenosis likely is present over the lower third of the LS spine. No trauma or subluxation is associated. Slight dextroscoliosis. Dictated by: Mychal Mclaughlin M.D. on 10/06/2019 at 13:26 Approved by: Mychal Mclaughlin M.D. on 10/06/2019 at 13:27 MDM Narrative Medical decision making narrative: The patient is a 74-year-old male with history of lymphoma recent diagnosis who presents with a chief complaint of dehydration and possible bowel obstruction. He is passing gas and stool in the emergency department and has constipation on abdominal x-ray, helping rule out a small-bowel obstruction. He felt much improved after 2 L of fluid. I discussed at length remedies for constipation including MiraLax, senna etcetera. He does have a history of chronic back pain, does not have any incontinence of bowel, incontinence of bladder saddle anesthesia and states understand these return precautions. He feels much improved after the above-stated therapies are request to be discharged. His electrolytes are within normal limits, the patient feels much improved the patient is requesting to go home. Discussed at length coming back to the emergency department for any acute concerns as well as follow-up with primary care provider and cancer team. Patient has no questions or concerns upon discharge and states understanding return precautions as well as follow-up care. <Reece Mcknight MD - Last Filed: 10/06/19 21:45> Lab Data Labs: Lab Results 10/06/19 10/06/19 10/06/19 Range/Units 12:58 12:58 13:15 WBC 12.8 H (4.5-11.0) X10^3/uL RBC 4.94 (4.5-5.9) X10^6/uL Hgb 14.9 (13.5-17.5) g/dL Hct 43.4 (41-53) % MCV 88.0 (80-100) fL MCH 30.2 (26-34) PG MCHC 34.4 (30-36) % RDW 14.8 (11.6-14.8) % Plt Count 264 (150-400) X10^3/uL Neut % (Auto) 57.7 (50-75) % Lymph % (Auto) 28.8 (25-40) % [place] % (Auto) 11.5 (3-14) % Eos % (Auto) 0.9 L (2-4) % Baso % (Auto) 1.1 (0-2) % Neut # (Auto) 7400 H (3106-3129) /uL Lymph # (Auto) 3700 (7082-1099) /uL [place] # (Auto) 1500 H (0-900) /uL Eos # (Auto) 100 (0-450) /uL Baso # (Auto) 100 (0-100) /uL Sodium 135 L (137-145) mmol/L Potassium 4.3 (3.4-5.1) mmol/L Chloride 97 L (98-107) mmol/L Carbon Dioxide 31 (22-32) mmol/L BUN 17 (9-20) mg/dL Creatinine 0.84 (0.66-1.25) mg/dL Estimated GFR > 60.0 (>60) mL/min BUN/Creatinine Ratio 20.2 (6-22) Glucose 126 H (80-110) mg/dL Calcium 11.7 H (8.4-10.2) mg/dL Total Bilirubin 0.8 (0.2-1.3) mg/dL AST 31 (17-59) IU/L ALT 19 (<50) IU/L Alkaline Phosphatase 49 (38-126) U/L Ammonia < 9 L (9-30) umol/L Total Protein 8.6 H (6.3-8.2) g/dL Albumin 3.8 (3.5-5.0) g/dL Globulin 4.8 H (1.7-4.1) g/dL Albumin/Globulin Ratio 0.8 L (1.0-2.8) Amylase (30-110) U/L Lipase (23-300) U/L U Opiates 300ng/mL cut (Negative) Ur Oxycodone Screen (Negative) Urine Methadone Screen (Negative) Ur Barbiturates Screen (Negative) U Tricyclic Antidepress (Negative) Ur Phencyclidine Scrn (Negative) Ur Amphetamines Screen (Negative) U Methamphetamines Scrn (Negative) Ur MDMA Scrn (Ecstasy) (Negative) U Benzodiazepines Scrn (Negative) Urine Cocaine Screen (Negative) U Marijuana (THC) Screen (Negative) 10/06/19 10/06/19 Range/Units 13:15 15:31 WBC (4.5-11.0) X10^3/uL RBC (4.5-5.9) X10^6/uL Hgb (13.5-17.5) g/dL Hct (41-53) % MCV (80-100) fL MCH (26-34) PG MCHC (30-36) % RDW (11.6-14.8) % Plt Count (150-400) X10^3/uL Neut % (Auto) (50-75) % Lymph % (Auto) (25-40) % [place] % (Auto) (3-14) % Eos % (Auto) (2-4) % Baso % (Auto) (0-2) % Neut # (Auto) (6413-9801) /uL Lymph # (Auto) (8924-0483) /uL [place] # (Auto) (0-900) /uL Eos # (Auto) (0-450) /uL Baso # (Auto) (0-100) /uL Sodium (137-145) mmol/L Potassium (3.4-5.1) mmol/L Chloride (98-107) mmol/L Carbon Dioxide (22-32) mmol/L BUN (9-20) mg/dL Creatinine (0.66-1.25) mg/dL Estimated GFR (>60) mL/min BUN/Creatinine Ratio (6-22) Glucose (80-110) mg/dL Calcium (8.4-10.2) mg/dL Total Bilirubin (0.2-1.3) mg/dL AST (17-59) IU/L ALT (<50) IU/L Alkaline Phosphatase (38-126) U/L Ammonia (9-30) umol/L Total Protein (6.3-8.2) g/dL Albumin (3.5-5.0) g/dL Globulin (1.7-4.1) g/dL Albumin/Globulin Ratio (1.0-2.8) Amylase 123 H (30-110) U/L Lipase 98 (23-300) U/L U Opiates 300ng/mL cut Negative (Negative) Ur Oxycodone Screen Positive H (Negative) Urine Methadone Screen Negative (Negative) Ur Barbiturates Screen Negative (Negative) U Tricyclic Antidepress Negative (Negative) Ur Phencyclidine Scrn Negative (Negative) Ur Amphetamines Screen Negative (Negative) U Methamphetamines Scrn Negative (Negative) Ur MDMA Scrn (Ecstasy) Negative (Negative) U Benzodiazepines Scrn Negative (Negative) Urine Cocaine Screen Negative (Negative) U Marijuana (THC) Screen Positive H (Negative) Urine Dip Bedside Urine Glucose Negative Bedside Urine Bilirubin - Negative Bedside Urine Ketone - Negative Urine Specific [place] 1.015 Bedside Urine Occult Blood - Negative Bedside Urine pH 6.5 Bedside Urine Protein - Negative Bedside Urine Urobilinogen - Negative Bedside Urine Nitrite - Negative Bedside Urine Leukocytes - Negative Esterase Discharge Plan Departure Patient Disposition: Home Clinical Impression: Dehydration Lower back pain Qualifiers: Chronicity: acute Back pain laterality: bilateral Sciatica presence: without sciatica Qualified Code(s): M54.5 - Low back pain Constipation Qualifiers: Constipation type: unspecified constipation type Qualified Code(s): K59.00 - Constipation, unspecified Discharge Date/Time: 10/06/19 17:32 Instructions: DI for Dehydration -- Adult, DI for Low Back Pain, DI for Constipation Activity Restrictions/Additional Instructions: Thank you for trusting us with your care today As discussed, I sent 2 prescriptions to [facility] in [place]. This includes a prescription of hydrocodone with Tylenol as well as lidocaine patches. Please follow-up with primary care provider in the next few days as we discussed. Please come back to the emergency department for any acute concerns such as abdominal pain with inability keep down fluids, abdominal pain with fever etcetera. Also please come back to the emergency department for any new incontinence of bowel, incontinence of bladder or numbness in your groin. I have given you a prescription of a narcotic for pain. Be aware that this can be constipating and sedating. I encouraged taking with a stool softener, pushing fluids and fiber. Do not take and drive, operate heavy machinery, etc. Do not combine it with any other sedating substances such as alcohol. The combination of narcotics and alcohol and/or other sedatives can be lethal. Regarding the constipation, encourage daily use of MiraLax. Your smooth move tea may be helpful. Docusate stool softener can also be helpful. Other things included milk of magnesia, ensuring that you are very well hydrated etcetera And told nurse tip is a mixture of warm applesauce with warm prune juice and a tab of butter on top. Prescriptions: New lidocaine 5 % adhesive patch,medicated 1 patch TOP DAILY PRN (Reason: pain) Qty: 15 RF: 0 hydrocodone-acetaminophen 5-325 mg tablet 1 tab PO Q4-6H PRN (Reason: pain) Qty: 10 RF: 0 No Action metformin 500 mg tablet 500 mg PO BEDTIME RF: 0 warfarin 5 mg tablet 5 mg PO SEEINSTR RF: 0 metoprolol succinate 25 mg Tablet Extended Release 24 Hr 25 mg PO DAILY RF: 0 oxycodone-acetaminophen 5-325 mg tablet 1 tab PO Q4H PRN (Reason: painful procedure) Qty: 10 RF: 0 Referrals: Grabiel Thompson MD [Primary Care Provider] -
[2019-10-06 15:38] VITALS: BP 136/77; PULSE 95; RESP 16; O2SAT 98
[2019-10-06 15:45] LABS: UR Morphine/Opiate cutoff 300 Negative (Negative); Ur Creatinine Normal (Normal); Ur Specific Gravity Normal (Normal); Urine Amphetamines Negative (Negative); Urine Barbiturates Negative (Negative); Urine Benzodiazepines Negative (Negative); Urine Cocaine Negative (Negative); Urine MDMA Negative (Negative); Urine Methadone Negative (Negative); Urine Methamphetamines Negative (Negative); Urine Oxycodone Positive (Negative); Urine Phencyclidine Negative (Negative); Urine Tetrahydrocannabinol Positive (Negative); Urine Tricyclic Antidepressant Negative (Negative); Urine pH Normal (Normal)
[2019-10-06] MEDS: LIDOCAINE PATCH 1 EACH ADH..PATCH TOP (16:22)
[2019-10-06] MEDS: HYDROCODONE/ACET 5/325 TABLET 1 TAB PO (16:22)
[2019-10-06 16:42] VITALS: BP 147/77; PULSE 88; RESP 16; O2SAT 98
== END 2019-10-06 17:32 | disposition home or self-care (01) ==
PROVIDERS: Emergency Medicine; Emergency Provider Nurse Practitioner Family; PCP Internal Medicine
DX: E86.0 Dehydration (principal); M54.5 Low back pain; K59.00 Constipation, unspecified; R10.9 Unspecified abdominal pain; R41.82 Altered mental status, unspecified
CPT/HCPCS: 36415; 71045; 72100; 74019; 80053; 80305; 81003; 82140; 82150; 83690; 85025; 93005; 96360; 96361; 99284

== ENCOUNTER 2019-12-13 10:32 | Emergency (ER) | payer MEDICARE, SELFPAY ==
[2019-12-13 10:41] VITALS: BP 100/54; PULSE 83; RESP 18; TEMP 36.6; O2SAT 96; BMI 17.8
--- NOTE | 2019-12-13 10:56 | ED_ITS ---
HPI - Head Injury General Chief complaint: Head Injury Stated complaint: cut on forehead/fell this am Time Seen by Provider: 12/13/19 10:50 Source: patient Mode of arrival: Ambulatory Limitations: no limitations History of Present Illness HPI Narrative: Patient is a 74-year-old male on Coumadin for atrial fibrillation presenting after a ground level fall and head laceration. He says he still will need tripped falling and hitting his head on a bookshelf. No loss of conscious no nausea or vomiting. MD Complaint: head injury Related Data Home Medications Medication Instructions Recorded Confirmed metformin 500 mg PO BEDTIME 02/07/19 09/28/19 warfarin 5 mg PO SEEINSTR 02/07/19 09/28/19 metoprolol succinate 25 mg PO DAILY 09/21/19 09/28/19 Previous Rx's Medication Instructions Recorded oxycodone-acetaminophen 1 tab PO Q4H PRN #10 tab 09/21/19 hydrocodone-acetaminophen 1 tab PO Q4-6H PRN #10 tab 10/06/19 lidocaine 1 patch TOP DAILY PRN #15 each 10/06/19 Allergies Allergy/AdvReac Type Severity Reaction Status Date / Time No Known Drug Allergies Allergy Verified 10/06/19 12:59 Review of Systems Review of Systems Narrative: GENERAL: Denies chills, fatigue, malaise, fever, sweats, travel HEENT: Denies sinus pain, ear pain, sore throat, difficulty swallowing, neck pain RESPIRATORY: Denies dyspnea, cough, wheezing, hemoptysis, sputum. CARDIOVASCULAR: Denies chest pain, palpitations, orthopnea, edema GASTROINTESTINAL: Denies nausea, vomiting, abdominal pain, diarrhea, constipation, melena. : Denies dysuria, frequency, incontinence, hematuria, urinary retention, flank pain. MUSCULOSKELETAL: Denies weakness, joint pain, or bony pain SKIN: Forehead skin laceration NEUROLOGIC: Denies weakness, dizziness, headache, numbness, change in speech, confusion PSYCHIATRIC: No concerning psychosocial issues. 12 point review of systems is negative except for those stated above and HPI Patient History Medical History (Updated 12/13/19 @ 11:48 by Genevieve Cantrell DO) Atrial fibrillation (Acute) Chronic anticoagulation (Acute) Type 2 diabetes mellitus (Acute) Family History Other Cancer Social History household members: spouse Smoking Status: Current every day smoker alcohol intake: current Smoking Status: Current every day smoker alcohol intake frequency: holidays/special occasions only Substance Use Type: does not use Exam Initial Vital Signs Initial Vital Signs: Vital Signs Temperature 97.8 F 12/13/19 10:41 Pulse Rate 83 12/13/19 10:41 Respiratory Rate 18 12/13/19 10:41 Blood Pressure 100/54 L 12/13/19 10:41 Pulse Oximetry 96 12/13/19 10:41 GENERAL: Thin elderly male no acute distress and in [no acute] distress. HEENT: Head laceration noted as pictured, no crepitations depression,EOMI, pupils reactive, face symmetric, [moist] mucous membranes NECK: No vertebral tenderness or step-offs full flexion extension and rotation CARDIOVASCULAR: Regular rate and rhythm without murmurs, rubs or gallops. RESPIRATORY: Breath sounds equal bilaterally, no wheezes rales or rhonchi. EXTREMITIES: Normal range of motion, no clubbing or edema. Neurovascularly intact NEUROLOGICAL: Alert and oriented x4.Normal gait and speech. Cranial nerves II through XII grossly intact. SKIN: Warm, dry, no laceration, no petechiae, no rashes or lesions. Skin Adult Head Front: 1. Circular flap lesion 1 cm x 2 cm Procedures Laceration Repair Laceration 1: Site: scalp Size (cm): 3 Description: flap Depth: simple, single layer Local Anesthetic: lidocaine 1% and with epi Amount of anesthesia used (mL): 4 Pre-repair: wound explored and irrigated extensively Skin layer closed with: nylon Size (cm): 5-0 Number of sutures: 7 Technique: simple, interrupted Course Orders Ordered: ED Orders 12/13/19 11:02 CT head/brain wo con Stat Discontinued Medications Bacitracin (Bacitracin) 1 applic TOP NOW ONE Stop: 12/13/19 12:20 Last Admin: 12/13/19 12:21 Dose: 1 applic Documented by: CAROL Lidocaine/Epinephrine (Xylocaine 2% W/Epi) 1 ml INJ INTRA-OP ONE Stop: 12/13/19 11:11 Last Admin: 12/13/19 11:19 Dose: 1 ml Documented by: KBROTEM Vital Signs Vital signs: Vital Signs - 8 hr 12/13/19 10:41 12/13/19 11:23 12/13/19 11:53 Temperature 97.8 F Pulse Rate 83 85 Pulse Rate [Orthostatic Lying] 92 H Pulse Rate [Orthostatic Sitting] 87 Pulse Rate [Orthostatic Standing] 89 Respiratory Rate 18 Blood Pressure 100/54 L 94/59 L Blood Pressure [Orthostatic Lying] 92/58 L Blood Pressure [Orthostatic Sitting] 84/54 L Blood Pressure [Orthostatic Standing] 81/53 L Pulse Oximetry 96 100 12/13/19 12:04 Temperature Pulse Rate 68 Pulse Rate [Orthostatic Lying] Pulse Rate [Orthostatic Sitting] Pulse Rate [Orthostatic Standing] Respiratory Rate Blood Pressure 109/66 Blood Pressure [Orthostatic Lying] Blood Pressure [Orthostatic Sitting] Blood Pressure [Orthostatic Standing] Pulse Oximetry MDM - Head Injury Imaging Data CT scan - head: Radiologist's Impression: PROCEDURE: CT HEAD/BRAIN WO CON INDICATIONS: fall on coumadin abrasion forehead TECHNIQUE: Noncontrast 4.5 mm thick angled axial sections acquired from the foramen magnum to the vertex, with coronal and sagittal reformats. For radiation dose reduction, the following was used: automated exposure control, adjustment of mA and/or kV according to patient size. COMPARISON: [facility], CT, CT HEAD WITHOUT CONTRAST, 04/23/2019, 16:31. [facility], CT, CT HEAD/BRAIN WO CON, 04/22/2019, 10:06. FINDINGS: Image quality: Excellent. CSF spaces: Basal cisterns are patent. No extra-axial fluid collections. The ventricles are symmetric in size and shape. Brain: No intracranial bleeds or masses. There is moderate cerebral volume loss for age, with resultant ventricular and sulcal prominence. There are moderate to severe periventricular and deep white matter chronic small vessel ischemic changes. There is intracranial internal carotid artery atherosclerosis. Skull and face: Calvarium and visualized facial bones appear intact, without suspicious lesions. Sinuses: Visualized sinuses and mastoids are clear. IMPRESSION: 1. No acute intracranial abnormalities. 2. Cerebral volume loss and chronic microvascular ischemic changes. Dictated by: Lewis Armas M.D. on 12/13/2019 at 11:12 Approved by: Lewis Armas M.D. on 12/13/2019 at 11:18 MDM Narrative Medical decision making narrative: Patient is noted to be a little hypotensive. After suturing he has ambulated and is completely asymptomatic. Blood pressure is again retaken and he has a systolic over 100. At this time I recommend he go home and increase his water intake and rest. Discharge Plan Departure Patient Disposition: Home Clinical Impression: Closed head injury Qualifiers: Encounter type: initial encounter Qualified Code(s): S09.90XA - Unspecified injury of head, initial encounter Laceration of scalp Qualifiers: Encounter type: initial encounter Qualified Code(s): S01.01XA - Laceration without foreign body of scalp, initial encounter Discharge Date/Time: 12/13/19 12:28 Instructions: DI for Laceration Repair -- Simple, DI for Closed Head Injury Activity Restrictions/Additional Instructions: *You have been diagnosed with closed head injury scalp laceration *What to do: Have sutures removed in about 7 days. Keep area clean and dry you may shower no hair cuts or soaking in water may need to apply Neosporin 1-2 times daily to help with healing *Continue to take medications as directed *Follow up with your primary care provider in 2-3 days *Return to ER if you should have redness pause swelling, persistent vomiting worsening headache or any new, worsening or concerning symptoms Prescriptions: No Action lidocaine 5 % adhesive patch,medicated 1 patch TOP DAILY PRN (Reason: pain) Qty: 15 RF: 0 hydrocodone-acetaminophen 5-325 mg tablet 1 tab PO Q4-6H PRN (Reason: pain) Qty: 10 RF: 0 metformin 500 mg tablet 500 mg PO BEDTIME RF: 0 warfarin 5 mg tablet 5 mg PO SEEINSTR RF: 0 metoprolol succinate 25 mg Tablet Extended Release 24 Hr 25 mg PO DAILY RF: 0 oxycodone-acetaminophen 5-325 mg tablet 1 tab PO Q4H PRN (Reason: painful procedure) Qty: 10 RF: 0 Referrals: Grabiel Thompson MD [Primary Care Provider] -
--- NOTE | 2019-12-13 11:02 | DI.CT.S_ITS ---
PROCEDURE: CT HEAD/BRAIN WO CON INDICATIONS: fall on coumadin abrasion forehead TECHNIQUE: Noncontrast 4.5 mm thick angled axial sections acquired from the foramen magnum to the vertex, with coronal and sagittal reformats. For radiation dose reduction, the following was used: automated exposure control, adjustment of mA and/or kV according to patient size. COMPARISON: [facility], CT, CT HEAD WITHOUT CONTRAST, 04/23/2019, 16:31. [facility], CT, CT HEAD/BRAIN WO CON, 04/22/2019, 10:06. FINDINGS: Image quality: Excellent. CSF spaces: Basal cisterns are patent. No extra-axial fluid collections. The ventricles are symmetric in size and shape. Brain: No intracranial bleeds or masses. There is moderate cerebral volume loss for age, with resultant ventricular and sulcal prominence. There are moderate to severe periventricular and deep white matter chronic small vessel ischemic changes. There is intracranial internal carotid artery atherosclerosis. Skull and face: Calvarium and visualized facial bones appear intact, without suspicious lesions. Sinuses: Visualized sinuses and mastoids are clear. IMPRESSION: 1. No acute intracranial abnormalities. 2. Cerebral volume loss and chronic microvascular ischemic changes. Dictated by: Lewis Armas M.D. on 12/13/2019 at 11:12 Approved by: Lewis Armas M.D. on 12/13/2019 at 11:18
[2019-12-13] MEDS: LIDOCAINE 2% W/EPI INJ 1 ML INJ (11:19)
[2019-12-13 11:23] VITALS: BP 94/59; PULSE 85; O2SAT 100
[2019-12-13 11:53] VITALS: BP 81/53; BP 84/54; BP 92/58; PULSE 87; PULSE 89; PULSE 92
--- NOTE | 2019-12-13 11:53 | PC.NURSE ---
Pt denies any dizziness with position changes. Dr Canterll aware
[2019-12-13 12:04] VITALS: BP 109/66; PULSE 68
[2019-12-13] MEDS: BACITRACIN OINT 0.9 GM PCKT 1 APPLIC TOP (12:21)
== END 2019-12-13 12:28 | disposition home or self-care (01) ==
PROVIDERS: Emergency Provider Emergency Medicine; PCP Internal Medicine
DX: S01.01XA Laceration without foreign body of scalp, initial encounter (principal); S09.90XA Unspecified injury of head, initial encounter; I95.9 Hypotension, unspecified; W22.8XXA Striking against or struck by other objects, initial encounter
CPT/HCPCS: 12002; 70450; 99284

== ENCOUNTER → 2019-12-13 13:51 | Outpatient (CLI) | payer MEDICARE, SELFPAY | PROVIDERS: PCP Internal Medicine; Visit Provider Nurse Practitioner | DX: R35.0 Frequency of micturition (principal) | CPT/HCPCS: 87077; 87086; 87186 ==